=== PATIENT | female | born 1965 | race Caucasian/White ===

== ENCOUNTER 2017-08-23 02:06 | Emergency (ER) | payer OTHER ==
[~2017-08-23] VITALS: Ht 182.9 cm; Wt 81.7 kg
[~2017-08-23 02:06] MED LIST: BACTROBAN22 GM TOP; BUPROPION HCL100 MG PO; ESTROGEN-METHY1 EACH PO; HUMIRA40 MG/0.1 SUB-Q; HYDROXYZINE HCL50 MG PO; LEVOTHYROXINE25 MCG PO; LEVOTHYROXINE88 MCG PO; MEDROXYPROGESTE10 MG PO; OXAPROZIN600 MG PO; SYNTHROID125 MCG PO; TRAMADOL HCL50 MG PO; VENLAFAXINE H37.5 M1 PO
[2017-08-23] MEDS ORDERED: NATURE-THROID325 MG (02:20)
[2017-08-23] MEDS ORDERED: CYCLOBENZAPRINE10 MG PO (02:21)
== END 2017-08-23 03:37 | disposition home or self-care (01) ==
LOC: ED 02:06
DX: G43.909 Migraine, unspecified, not intractable, without status migrainosus (principal); E03.9 Hypothyroidism, unspecified; Z79.899 Other long term (current) drug therapy
CPT/HCPCS: 96361; 96372; 96374; 96375; 99283; J1200; J1885; J2765; J3030; J7030

== ENCOUNTER 2019-02-10 06:55 | Day surgery (SDC) | payer OTHER ==
--- NOTE | 2019-01-28 17:18 | NUR ---
PATIENT HERE TODAY FOR PREADMISSION APPOINTMENT. SHE IS ACCOMPANIED BY HER ARETHA. SHE IS SCHEDULED TO HAVE A RIGHT TOTAL HIP ARTHROPLASTY ON 02/10/19. THEY HAVE ONE STEP INTO THE HOME AND 2 STEPS INSIDE THE HOME INTO THE LIVING ROOM AREA. THERE IS A TUB/SHOWER COMBINATION WITH A HAND HELD SHOWER HEAD. SHE WILL OBTAIN A FRONT WHEELED WALKER AND SHOWER BENCH/CHAIR BEFORE SURGERY. SHE WAS INSTRUCTED TO BRING HER WALKER WITH HER ON ADMISSION SO PHYSICAL THERAPY COULD EVALUATE AND ADJUST IF NEEDED. THEY BOTH VERBALIZED UNDERSTANDING OF THIS. RESOURCES GIVEN REGARDING OBTAINING A WALKER. SHE HAS A PREOPERATIVE APPOINTMENT WITH PHYSICAL THERAPY ON 01/30/19 AT 0700. SHE WAS INSTRUCTED TO TALK WITH THEM REGARDING QUESTIONS ABOUT GETTING IN AND OUT OF BED, CAR AND STAIRS. SHE WOULD LIKE PHYSICAL THERAPY SET UP WITH [facility] AFTER SURGERY. THIS INFORMATION WILL BE SENT TO DR RUFFIN OFFICE AND CASE MANAGEMENT FOR FURTHER FOLLOW UP.
[~2019-02-10] VITALS: Ht 182.9 cm; Wt 86.2 kg
--- OUTSIDE RECORDS SUMMARY | ~2019-02-10 | XMS | Clinical Summary ---
Demographics + + + | Address | [address] | | | [place] [address] | + + + | Home Phone | | + + + | Preferred Language | Unknown | + + + | Marital Status | | + + + | Orthodoxy Affiliation | 1013 | + + + | Race | Unknown | + + + | Ethnic Group | Unknown | + + + Author + + + | Author | [facility] | | | and Jalilana | + + + | Organization | [facility] | | | and [place] | + + + | Address | Unknown | + + + | Phone | Unavailable | + + + Support + + +---------+ + | Name | Relationship | Address | Phone | + + +---------+ + | Keith Friedman | ECON | Unknown | | + + +---------+ + Care Team Providers + +------+ + | Care Auto Former Machine Operator Name | Role | Phone | + +------+ + | Roselyn Cotter | PCP | | | PA | | | + +------+ + Allergies No Known Allergies Medications + + + +---------+------+------+-------+ | Medication | Sig | Dispensed | Refills | Star | End | Statu | | | | | | t | Date | s | | | | | | Date | | | + + + +---------+------+------+-------+ | EQUIPTO-NAPROXEN | Place onto the | | 0 | 07/2 | | Activ | | EX | skin. | | | 4/20 | | e | | | | | | 19 | | | + + + +---------+------+------+-------+ | thyroid (ARMOUR) | Take 120 mg by mouth | | 0 | 07/2 | | Activ | | 120 MG tablet | every morning | | | 4/20 | | e | | | before breakfast. | | | 19 | | | + + + +---------+------+------+-------+ | thyroid | Take by mouth. | | 0 | 07/2 | | Activ | | (NATURE-THROID) | | | | 4/20 | | e | | 48.75 MG TABS | | | | 19 | | | + + + +---------+------+------+-------+ | traMADol (ULTRAM) | Take 50 mg by mouth | | 0 | 12/0 | | Activ | | 50 mg tablet | every 6 (six) hours | | | 8/20 | | e | | | as needed for Pain. | | | 15 | | | + + + +---------+------+------+-------+ | aspirin 325 mg | Take 650 mg by mouth | | 0 | 12/2 | | Activ | | tablet | as needed for Pain. | | | 8/20 | | e | | | | | | 15 | | | + + + +---------+------+------+-------+ | hydrocortisone | Take 5 mg by mouth 2 | | 0 | 11/0 | | Activ | | (CORTEF) 5 MG tablet | (two) times daily. | | | 9/20 | | e | | | | | | 18 | | | + + + +---------+------+------+-------+ | naltrexone (REVIA) | Take 50 mg by mouth | | 0 | 11/0 | | Activ | | 50 mg tablet | daily. | | | 9/20 | | e | | | | | | 18 | | | + + + +---------+------+------+-------+ | MANUAL SELECTION | Apply topically | | 0 | 07/2 | | Activ | | NEEDED - | daily. Apply every | | | 4/20 | | e | | estriol-estradiol in | other day | | | 19 | | | | hormone cream base | | | | | | | + + + +---------+------+------+-------+ | meloxicam (MOBIC) | TAKE 1 TABLET DAILY | 30 | 12 | 0 | | Activ | | 15 mg tablet | | tablet | | 06/01 | | e | | | | | | 19 | | | + + + +---------+------+------+-------+ Active Problems + + + | Problem | Noted Date | + + + | Sacroiliitis | 09/04/2018 | + + + | Psoriasis | 09/04/2018 | + + + | Right hip pain | 09/04/2018 | + + + | Osteoarthritis | 09/04/2018 | + + + | Mass of right hand | 06/19/2018 | + + + | Subluxation of carpometacarpal joint of right thumb | 06/19/2018 | + + + + + | Overview: Added automatically from request for surgery [id number] | + + + + + | Arthritis of carpometacarpal (CMC) joint of right thumb | 12/26/2017 | + + + | Subluxation of carpometacarpal joint of left thumb | 02/18/2017 | + + + | Arthritis of carpometacarpal (CMC) joint of left thumb | 02/18/2017 | + + + | Right hand pain | 02/18/2017 | + + + | Spondyloarthropathy | 11/03/2016 | + + + | High risk medication use | 11/03/2016 | + + + | Thrombocytopenia | 11/03/2016 | + + + | Spondylosis without myelopathy or radiculopathy, lumbosacral | 12/21/2015 | | region | | + + + | Inflammatory polyarthropathy or polyarthritis | 12/21/2015 | + + + | Chronic right-sided low back pain without sciatica | 12/21/2015 | + + + | Slow transit constipation | 10/28/2015 | + + + | Sacro-iliac pain | 01/19/2015 | + + + | Spondylolisthesis of lumbar region | 01/19/2015 | + + + Family History + +------+ + + | Relation | Name | Status | Comments | + +------+ + + | Brother | | Alive | | + +------+ + + | Father | | Alive | | + +------+ + + | Mother | | | | + +------+ + + | Sister | | Alive | | + +------+ + + Social History + +-------+ +--------+------+ | Tobacco Use | Types | Packs/Day | Years | Date | | | | | Used | | + +-------+ +--------+------+ | Former Smoker | | | | | + +-------+ +--------+------+ + + + | Sex Assigned at | Date Recorded | | | | + + + | Not on file | | + + + + + + + | Job Start Date | Occupation | Industry | + + + + | Not on file | Not on file | Not on file | + + + + + + + + | Travel History | Travel Start | Travel End | + + + + + + | No recent travel history available. | + + Last Filed Vital Signs + + + + + | Vital Sign | Reading | Time Taken | Comments | + + + + + | Blood Pressure | 98/62 | 09/04/2018 9:47 AM | | | | | PDT | | + + + + + | Pulse | 72 | 09/04/2018 9:47 AM | | | | | PDT | | + + + + + | Temperature | 36.7 C (98 F) | 09/04/2018 9:47 AM | | | | | PDT | | + + + + + | Respiratory Rate | 16 | 01/11/2016 5:31 PM | | | | | PST | | + + + + + | Oxygen Saturation | - | - | | + + + + + | Inhaled Oxygen | - | - | | | Concentration | | | | + + + + + | Weight | 84.1 kg (185 lb 6.4 | 09/04/2018 9:47 AM | | | | oz) | PDT | | + + + + + | Height | 182.9 cm (6') | 06/19/2018 2:34 PM | | | | | PDT | | + + + + + | Body Mass Index | 25.14 | 06/19/2018 2:34 PM | | | | | PDT | | + + + + + Plan of Treatment + + + + + | Health Maintenance | Due Date | Last Done | Comments | + + + + + | Hepatitis C | | | | | Screening | 4 | | | + + + + + | Vaccine: | | | | | Dtap/Tdap/Td (1 - | 5 | | | | Tdap) | | | | + + + + + | Cervical Cancer | | | | | Screening (Pap) | 4 | | | + + + + + | Colorectal Cancer | | | | | Screening | 4 | | | | (Colonoscopy) | | | | + + + + + | Vaccine: Zoster (1 | | | | | of 2) | 4 | | | + + + + + | Breast Cancer | | | | | Screening | 9 | | | + + + + + | Vaccine: Influenza | | | | | (#1) | 9 | | | + + + + + Results Not on filefrom Last 3 Months Insurance +-------+--------+ +--------+-------+---------+------+ | Payer | Benefi | Subscriber | Effect | Phone | Address | Type | | | t Plan | ID | rosetta | | | | | | / | | Dates | | | | | | Group | | | | | | +-------+--------+ +--------+-------+---------+------+ | BCBS | BCBS | [id number] | | | | PPO | | | [place] | | 013-Pr | | | | | | L FEP | | esent | | | | +-------+--------+ +--------+-------+---------+------+ + +--------+ +--------+ + + | Guarantor Name | Accoun | Relation to | Date | Phone | Billing Address | | | t Type | Patient | of | | | | | | | | | | + +--------+ +--------+ + + | Trista Friedman | Person | Self [birth year] | [address] | | | al/Fam | | 1966 | [phone] | [address] [place] | | | miles | | | 2 (Home) | [address] | | | | | | [phone] | | | | | | | 0 (Work) | | + +--------+ +--------+ + + Advance Directives + + + + + | Type | Date Recorded | Patient | Explanation | | | | Dairy Manufacturing Technologist | | + + + + + | Power of | | | | | Toddler Lead Teacher | | | | + + + + + | Advance | | | | | Directive | | | | + + + + +"
--- OUTSIDE RECORDS SUMMARY | ~2019-02-10 | XMS | Encounter Summary ---
Demographics + + + | Address | [address] [facility] | | | [place] [address] | + + + | Home Phone | | + + + | Preferred Language | Unknown | + + + | Marital Status | | + + + | Temple Affiliation | 1013 | + + + | Race | Unknown | + + + | Ethnic Group | Unknown | + + + Author + + + | Author | [facility] | | | and Jalilana | + + + | Organization | [facility] | | | and Jalilana | [...] Team Providers + +------+ + | Care Eyelet Riveter Name | Role | Phone | + +------+ + | Roselyn Cotter | PCP | | | PA | | | + +------+ + Encounter Details +--------+ + + + + | Date | Type | Department | Care Team | Description | +--------+ + + + + | 02/10/ | Orders Only | [facility] | Neema Queen | | | 2015 | | RHEUMATOLOGY [address] | [address] | | | | | [address] | [facility] | | | | | [place] | [place] [address] | | | | | [address] | [phone] | | | | | [phone] | | | +--------+ + + + + Social History + +-------+ +--------+------+ | Tobacco Use | Types | Packs/Day | Years | Date | | | | | Used | | + +-------+ +--------+------+ | Never Assessed | | | | | + +-------+ [...] recent travel history available. | + + documented as of this encounter Plan of Treatment Not on filedocumented as of this encounter Visit Diagnoses Not on filedocumented in this encounter"
--- OUTSIDE RECORDS SUMMARY | ~2019-02-10 | XMS | Encounter Summary ---
Demographics + + + | Address | [address] | | | [place] [address] | + + + | Home Phone | | + + + | Preferred Language | Unknown | + + + | Marital Status | | + + + | Religion Affiliation | 1013 | + + + | Race | Unknown | + + + | Ethnic Group | Unknown | + + + Author + + + | Author | [facility] | | | and Jalilana | + + + | Organization | [facility] | | | and Jalilana [...] Team Providers + +------+ + | Care Consumer Services Consultant Name | Role | Phone | + [...] + + | 10/15/ | Refill | [facility] | Neema Queen | Medication Refill | | 2018 | | RHEUMATOLOGY [address] | [address] | | | | | [address] | [address] | | | | | [place] | [place] [address] | | | | | [address] | [phone] | | | | | [phone] | | | +--------+--------+ + + + [...]
--- OUTSIDE RECORDS SUMMARY | ~2019-02-10 | XMS | Encounter Summary ---
Demographics + + + | Address | [address] | | | [place] [address] | + + + | Home Phone | | + + + | Preferred Language | Unknown | + + + | Marital Status | | + + + | Druze Affiliation | 1013 | + + + | Race | Unknown | + + + | Ethnic Group | Unknown | + + + Author + + + | Author | [facility] | | | and Jalilana | + + + | Organization | [facility] | | | and Jalilana | + [...] Team Providers + +------+ + | Care Board Worker Name | Role | Phone | + +------+ + | Roselyn Cotter | PCP | | | PA | | | + +------+ + Encounter Details +--------+ + + + + | Date | Type | Department | Care Team | Description | +--------+ + + + + | 09/04/ | Orders Only | [facility] | Conversion | Osteoarthritis | | 2019 | | CONVERSION DEP [address] | Transaction, | | | | | [address] | Provider Unknown | | | | | [place] | [phone] | | | | | [address] | | | | | | [phone] | | | +--------+ + + + [...] as of this encounter Plan of Treatment + +------+--------+ + + | Name | Type | Priori | Associated Diagnoses | Order Schedule | | | | ty | | | + +------+--------+ + + | CBC with | Lab | Routin | Osteoarthritis | 3 Occurrences | | Differential | | e | | starting 09/27/2018 | | | | | | until 09/05/2019 | + +------+--------+ + + | Comprehensive | Lab | Routin | Osteoarthritis | 3 Occurrences | | Metabolic Panel | | e | | starting 09/27/2018 | | | | | | until 09/05/2019 | + +------+--------+ + + | Sedimentation Rate | Lab | Routin | Osteoarthritis | 3 Occurrences | | | | e | | starting 09/27/2018 | | | | | | until 09/05/2019 | + +------+--------+ + + | C-Reactive Protein | Lab | Routin | Osteoarthritis | 3 Occurrences | | | | e | | starting 09/27/2018 | | | | | | until 09/05/2019 | + +------+--------+ + + documented as of this encounter Visit Diagnoses + + | Diagnosis | + + | Osteoarthritis Osteoarthrosis, unspecified whether generalized or localized, | | unspecified site | + + documented in this encounter"
--- OUTSIDE RECORDS SUMMARY | ~2019-02-10 | XMS | Encounter Summary ---
Demographics + + + | Address | [address] [address] | | | [place] [address] | + + + | Home Phone | | + + + | Preferred Language | Unknown | + + + | Marital Status | | + + + | Jainism Affiliation | 1013 | + + + | Race | Unknown | + + + | Ethnic Group | Unknown | + + + Author + + + | Author | [facility] | | | and Jalilana | + + + | Organization | [facility] | | | and Jal[place]ana [...] Team Providers + +------+ + | Care Documentation Designer Name | Role | Phone | + +------+ + PCP | Unavailable | + +------+ + Encounter Details +--------+ + + + + | Date | Type | Department | Care Team | Description | +--------+ + + + + | 10/05/ | Hospital | [facility] | Alhaji Nuno | | | 2012 | Encounter | [facility] EM[facility] | MD [address] | | | | | [place] [address] | [facility] | | | | | [place] | [place] [address] | | | | | [address] | [phone] | | | | | [phone] | | | +--------+ + + + [...] Performed At | + + + | [facility] | [place] | | Department [address] [facility] [address] | [facility] | | [ rep [address]] [ rep [facility] | | st zip] Signed | - IMAGING | | | | | Patient Name: TRISTA MENDOZA | | | Physician: EFRAIN : 1965 Age: 47 Sex: F Unit | | | #: [id number] Exam Date: 10/05/12 Location: | | | ER Report #: [id number] Page: | | | %(RAD)RES..mtdd.print.filter("pg") of %(RAD) | | | RES..mtdd.print.filter("tpg") | | | | | | Accession Number: [id number] | | | PORTABLE CHEST CLINICAL HISTORY: [...] Transcribed Date/Time: 10/05/2012 | | | 11:41 Vinyl Cutter: <<Signature | | | on File>> | | | | | | Angel Chambers MD10/06/12 0954 <Electronically signed by | | | Angel Chambers MD> Angel Chambers MD 10/05/12 | | | 1128 Vinyl Cutter: Raysa [id number]/24/13 1141 | | | Alhaji Nuno MD | | + + + + + + + + | Performing | Address | City/State/Zipcode | Phone Number | | Organization | | | | + + + + + | [facility] | [address] | [place] | [phone] | | [facility] | | [address] | | | - IMAGING | | [...] | | Count | | | [facility] | | | | | | MEDICAL [...] [address] | [place] | [phone] | | [facility] | | [address] | | | - LABORATORY | | | | + + + + + | [facility] | [address] | [place] | | | [facility] | | [address] | | | - LABORATORY | | [...] + | [facility] | [address] | [place], [place] | [phone] | | [facility] | | [address] | | | - LABORATORY | | | | + + + + + | [facility] | [address] | [place], [place] | | | [facility] | | [address] | | | - LABORATORY | | [...] + | [facility] | [address] | [place], [place] | [phone] | | [facility] | | [address] | | | - LABORATORY | | | | + + + + + | [facility] | [address] | [place] | | | [facility] | | [address] | | | - LABORATORY | | [...] The | | | | | | [employer] | | | | | [...] + + | Performing | Address | City/State/[facility] | Phone Number | | Organization | | | | + + + + + | [facility] | [address] | [place] | [phone] | | [facility] | | [address] | | | - LABORATORY | | | | + + + + + | [facility] | [address] | [place] | | | [facility] | | [address] | | | - LABORATORY | | | | + + + + + documented in this encounter Visit Diagnoses Not on filedocumented in this encounter
--- OUTSIDE RECORDS SUMMARY | ~2019-02-10 | XMS | Encounter Summary ---
Demographics + + + | Address | [address] [facility] [facility] [address] | | | [place] [address] | + + + | Home Phone | | + + + | Preferred Language | Unknown | + + + | Marital Status | | + + + | Christianity Affiliation | 1013 | + + + | Race | Unknown | + + + | Ethnic Group | Unknown | + + + Author + + + | Author | [facility] | | | and Jalilana | + + + | Organization | [facility] | | | and [...] Team Providers + +------+ + | Care Gut Dropper Name | Role | Phone | + [...] | | | | [place] | [address] | | | | | [address] | | | | | | [phone] | | | +--------+ + + + [...]
--- OUTSIDE RECORDS SUMMARY | ~2019-02-10 | XMS | Encounter Summary ---
Demographics + + + | Address | [address] [facility] | | | [place] [address] | + + + | Home Phone | | + + + | Preferred Language | Unknown | + + + | Marital Status | | + + + | Adventism Affiliation | 1013 | + + + | Race | Unknown | + + + | Ethnic Group | Unknown | + + + Author + + + | Author | [facility] | | | and Jalilana | + + + | Organization | [facility] | | | and [...] Team Providers + +------+ + | Care Conference Services Director Name | Role | Phone | + +------+ + | Roselyn Cotter | PCP | | | PA | | | + +------+ + Encounter Details +--------+ + + + + | Date | Type | Department | Care Team | Description | +--------+ + + + + | 09/13/ | Orders Only | [facility] | Iker Rowe | | | 2017 | | [address] | [address] | | | | | [address] | [address] | | | | | [place] | [place] [address] | | | | | [address] | [phone] | | | | | [phone] | | | +--------+ + + + [...] +--------+ + + + | XR FOOT LEFT 3 + VW | Routin | 09/13/2016 | | Results for this | | | e | 2:52 PM | | procedure are in the | | | | PDT | | results section. | + +--------+ + + + documented in this encounter Results XR Foot Left 3 + Vw (09/13/2016 2:52 PM PDT) + + | Specimen | + + | | + + + + + | Narrative | Performed At | + + + | | | | | | | Three views of the left foot demonstrate a calcaneal inclination | | | angle within normal limits. Bone density within normal limits. Dorsal | | | spurring at the midfoot on the lateral view noted with mild spurring | | | to the first metatarsal head. Intermetatarsal angle measures 11.4 | | | degrees with mild abduction of the great toe. IMPRESSION Mild | | | bunion deformity, left foot, with dorsal spurring to the first | | | metatarsocuneiform articulation. Read by IKER ROWE DPM | | | 09/18/2016 06:45 A | | + + + + + | Procedure Note | + + | Gurvinder Chan Conversion - 10/03/2018 7:20 PM PDT | | | | | | Three views of the left foot demonstrate a calcaneal inclination angle | | within normal limits. Bone density within normal limits. Dorsal spurring at | | the midfoot on the lateral view noted with mild spurring to the first | | metatarsal head. Intermetatarsal angle measures 11.4 degrees with mild | | abduction of the great toe. | | | | IMPRESSION | | Mild bunion deformity, left foot, with dorsal spurring to the first | | metatarsocuneiform articulation. | | | | Read by IKER ROWE DPM 09/18/2016 06:45 A | | | | | + + documented in this encounter Visit Diagnoses Not on filedocumented in this encounter"
--- OUTSIDE RECORDS SUMMARY | ~2019-02-10 | XMS | Encounter Summary ---
Demographics + + + | Address | [address] [facility] | | | [place] [address] | + + + | Home Phone | | + + + | Preferred Language | Unknown | + + + | Marital Status | | + + + | Confucianism Affiliation | 1013 | + + + | Race | Unknown | + + + | Ethnic Group | Unknown | + + + Author + + + | Author | [facility] | | | and Jalilana | + + + | Organization | [facility] | | | and Jalilana [...] Team Providers + +------+ + | Care Websphere Architect Name | Role | Phone | + +------+ + PCP | Unavailable | + +------+ + Encounter Details +--------+ + + + + | Date | Type | Department | Care Team | Description | +--------+ + + + + | 08/24/ | Hospital | [facility] | Eugenio Rowe, | | | 2000 | Encounter | MED CTR GENERIC OP | MD [address] | | | | | CONV DEPT [address] | [place] | | | | | [place], | [address] | | | | | [place] [address] | | | | | | [phone] | | | +--------+ + + + [...]
--- OUTSIDE RECORDS SUMMARY | ~2019-02-10 | XMS | Encounter Summary ---
Demographics + + + | Address | [address] [facility] | | | [place] [address] | + + + | Home Phone | | + + + | Preferred Language | Unknown | + + + | Marital Status | | + + + | Yazdanism Affiliation | 1013 | + + + | Race | Unknown | + + + | Ethnic Group | Unknown | + + + Author + + + | Author | [facility] | | | and Jalilana | + + + | Organization | [facility] | | | and Jalilana [...] Team Providers + +------+ + | Care Packing Shed Supervisor Name | Role | Phone | + [...] Provider Unknown | | | | | [place], [place] | [phone] | | | | | [address] | (Fax) | | | | | [...]
--- OUTSIDE RECORDS SUMMARY | ~2019-02-10 | XMS | Clinical Summary ---
Demographics + + + | Address | [address] [facility] | | | [place] [address] | + + + | Home Phone | | + + + | Preferred Language | Unknown | + + + | Marital Status | | + + + | Alevism Affiliation | Unknown | + + + | Race | Unknown | + + + | Ethnic Group | Unknown | + + + Author + + + | Author | [facility] (Historical as of | | | 09-28-18) | + + + | Organization | [facility] (Historical as of | | | 09-28-18) [...] Team Providers + +------+ + | Care Nuclear Medicine Tech Name | Role | Phone | + [...] | | | | Activ | | [id number] | skin. | | | | | [...] Overview: Added automatically from request for surgery [id number] | + + + + + | [...] I | | encouraged her to try [id number] laxitives. | + + + + + | Sacro-iliac pain | 01/19/2015 | + + + + + | Last Assessment & Plan: She was diagnosed with psoriatic | | arthritis and ankylosing spondylitis this past year. She reports | | no weakness, numbness nor bowel/bladder dysfunction. She did try | | physical therapy 2 years ago in [facility] [place] for a total of [...] +------+-------+---------+ | [facility] | [facility] | [id number] | | | | | | | [...] | Self | [birth year] | Home: | [address] | | | al/Fam | | 1966 | [phone] | [place] | | | miles | | | [phone] | [address] | + +--------+ +--------+ + +"
--- OUTSIDE RECORDS SUMMARY | ~2019-02-10 | XMS | Encounter Summary ---
Demographics + + + | Address | [address] [facility] | | | [place] [address] | + + + | Home Phone | | + + + | Preferred Language | Unknown | + + + | Marital Status | | + + + | Methodist Affiliation | 1013 | + + + | Race | Unknown | + + + | Ethnic Group | Unknown | + + + Author + + + | Author | [facility] | | | and Jalilana | + + + | Organization | [facility] | | | and Jalilana [...] Providers + +------+ + | Care Senior Financial Name | Role | Phone | + [...] | [address] | [address] | | | | | [place] | [facility] | | | | | [address] | [place] [address] | | | | | [phone] | [phone] | | | | | | | [...]
--- OUTSIDE RECORDS SUMMARY | ~2019-02-10 | XMS | Encounter Summary ---
Demographics + + + | Address | [address] [facility] | | | [place] [address] | + + + | Home Phone | | + + + | Preferred Language | Unknown | + + + | Marital Status | | + + + | Mandaeism Affiliation | 1013 | + + + | Race | Unknown | + + + | Ethnic Group | Unknown | + + + Author + + + | Author | [facility] | | | and Jalilana | + + + | Organization | [facility] | | | and Jalilana [...] Providers + +------+ + | Care Rn Military Name | Role | Phone | + [...] | | | | [place] | [phone] | | | | | [address] | | | | | | [phone] | | | +--------+ + + + [...]
--- OUTSIDE RECORDS SUMMARY | ~2019-02-10 | XMS | Encounter Summary ---
Demographics + + + | Address | [address] [facility] | | | [place] [address] | + + + | Home Phone | | + + + | Preferred Language | Unknown | + + + | Marital Status | | + + + | Alevism Affiliation | 1013 | + + + | Race | Unknown | + + + | Ethnic Group | Unknown | + + + Author + + + | Author | [facility] | | | and Jalilana | + + + | Organization | [facility] | | | and Jalilana | [...] Team Providers + +------+ + | Care Night Clerk Auditor Name | Role | Phone | + +------+ + | Roselyn Cotter | PCP | | | PA | | | + +------+ + Encounter Details +--------+ + + + + | Date | Type | Department | Care Team | Description | +--------+ + + + + | 11/22/ | Orders Only | [facility] | Adriano Chavez, | | | 2015 | | RHEUMATOLOGY [address] | [address] | | | | | [address] | [address] [place] | | | | | [place] | [address] | | | | | [address] | | | | | | [phone] | | | +--------+ + + + [...] | EXTERNAL LAB: CBC | Routin | 11/23/2015 | | Results for this | | | e | 2:42 PM | | procedure are in the | | | | PDT | | results section. | + +--------+ + + + | SEDIMENTATION RATE, | Routin | 11/23/2015 | | Results for this | | AUTOMATED | e | 2:42 PM | | procedure are in the | | | | PDT | | results section. | + +--------+ + + + | COMPREHENSIVE | Routin | 11/23/2015 | | Results for this | | METABOLIC PANEL | e | 2:42 PM | | procedure are in the | | | | PDT | | results section. | + +--------+ + + + documented in this encounter Results Sedimentation rate, automated (11/23/2015 2:42 PM PDT) + +-------+ + + + | Component | Value | Ref Range | Performed | Pathologist | | | | | At | Signature | + +-------+ + + + | Sed Rate | 6 | 0 - 30 mm/h | EXTERNAL | | | | | [...] + +---------+ + + External Lab: CBC (11/23/2015 2:42 PM PDT) + + + + + + | Component | Value | Ref Range | Performed | Pathologist | | | | | At | Signature | + + + + + + | WBC | 4.6 | 3.8 - 11.0 | EXTERNAL | | | | | 10*3/uL | LAB | | + + + + + + | RED CELL | 4.90 | 3.70 - 5.10 | EXTERNAL | | | COUNT | | 10*6/uL | LAB | | + + + + + + | Hgb | 15.0 | 11.3 - 15.5 | EXTERNAL | | | | | g/dL | LAB | | + + + + + + | Hematocrit, | 43.9 | 34.0 - 46.0 % | EXTERNAL | | | POC | | | LAB | | + + + + + + | MCV | 90.0 | 80.0 - 100.0 fL | EXTERNAL | | | | | | LAB | | + + + + + + | MCH | 30.7 | 27.0 - 34.0 pg | EXTERNAL | | | | | | LAB | | + + + + + + | MCHC | 34.2 | 32.0 - 35.5 | EXTERNAL | | | | | g/dL | LAB | | + + + + + + | Platelet | 150 | 150 - 400 | EXTERNAL | | | Count | | 10*3/uL | LAB | | | Plasma | | | | | + + + + + + | MPV | 8.4 | fL | EXTERNAL | | | | | | LAB | | + + + + + + | Differentia | AUTOMATED | | EXTERNAL | | | l Type | | | LAB | | + + + + + + | % Segmented | 44.1 | | EXTERNAL | | | | | | LAB | | | Neutrophils | | | | | + + + + + + | % | 46.8 | % | EXTERNAL | | | Lymphocytes | | | LAB | | + + + + + + | % Monocytes | 7.2 | % | EXTERNAL | | | | | | LAB | | + + + + + + | % | 1.4 | % | EXTERNAL | | | Eosinophils | | | LAB | | + + + + + + | % Basophils | 0.5 | % | EXTERNAL | | | | | | LAB | | + + + + + + | Absolute | 2.0 | 1.9 - 7.4 | EXTERNAL | | | Segmented | | 10*3/uL | LAB | | | Neutrophils | | | | | + + + + + + | Absolute | 2.2 | 1.0 - 3.9 | EXTERNAL | | | Lymphocytes | | 10*3/uL | LAB | | + + + + + + | Absolute | 0.3 | 0.0 - 0.8 | EXTERNAL | | | Monocytes | | 10*3/uL | LAB | | + + + + + + | Absolute | 0.1 | 0.0 - 0.5 | EXTERNAL | | | Eosinophils | | 10*3/uL | LAB | | + + + + + + | Absolute | 0.0 | 0.0 - 0.1 | EXTERNAL | | | Basophils | [...] + +---------+ + + Comprehensive Metabolic Panel (11/23/2015 2:42 PM PDT) + + + + + + | Component | Value | Ref Range | Performed | Pathologist | | | | | At | Signature | + + + + + + | Na | 139 | 135 - 145 | EXTERNAL | | | | | mmol/L | LAB | | + + + + + + | K | 4.6 | 3.5 - 4.9 | EXTERNAL | | | | | mmol/L | LAB | | + + + + + + | Cl | 104 | 99 - 109 mmol/L | EXTERNAL | | | | | | LAB | | + + + + + + | CO2 | 28 | 23 - 32 mmol/L | EXTERNAL | | | | | | LAB | | + + + + + + | Anion Gap | 12 | 5 - 20 mmol/L | EXTERNAL | | | | | | LAB | | + + + + + + | Glucose, | 81 | 65 - 99 mg/dL | EXTERNAL | | | Fasting | | | LAB | | + + + + + + | BUN | 19 | 8 - 25 mg/dL | EXTERNAL | | | | | | LAB | | + + + + + + | Creatinine | 0.9 | 0.50 - 1.00 | EXTERNAL | | | | | mg/dL | LAB | | + + + + + + | BUN/Creatin | 21 | | EXTERNAL | | | ine Ratio | | | LAB | | + + + + + + | Calcium | 9.3 | 8.5 - 10.5 | EXTERNAL | | | | | mg/dL | LAB | | + + + + + + | Protein, | 7.6 | 6.3 - 8.2 g/dL | EXTERNAL | | | Total | | | LAB | | + + + + + + | Albumin | 4.4 | 3.6 - 5.0 g/dL | EXTERNAL | | | | | | LAB | | + + + + + + | Globulin | 3.2 | 1.3 - 4.9 g/dL | EXTERNAL | | | | | | LAB | | + + + + + + | A/G Ratio | 1.4 | 1.0 - 2.4 | EXTERNAL | | | | | | LAB | | + + + + + + | Bilirubin | 0.4 | 0.1 - 1.5 mg/dL | EXTERNAL | | | Total | | | LAB | | + + + + + + | ALP, | 89 | 35 - 115 U/L | EXTERNAL | | | External | | | LAB | | + + + + + + | AST | 13 | 10 - 45 U/L | EXTERNAL | | | | | | LAB | | + + + + + + | ALT | 24 | 10 - 65 U/L | EXTERNAL | | | | | | LAB | | + + + + + + | Estimated | >60Comment: GFR <60: | mL/min/{1.73_m2 | EXTERNAL | | | GFR | CHRONIC KIDNEY DISEASE, | } | LAB | | | | IF FOUND OVER A 3 MONTH | | | | | | PERIOD. GFR <15: KIDNEY | | | | | | FAILURE. FOR | | | | | | AMERICANS, MULTIPLY THE | | | | | | CALCULATED GFR BY 1.210. | | | | + + + [...]
--- OUTSIDE RECORDS SUMMARY | ~2019-02-10 | XMS | Encounter Summary ---
Demographics + + + | Address | [address] [facility] | | | [place] [address] | + + + | Home Phone | | + + + | Preferred Language | Unknown | + + + | Marital Status | | + + + | Restoration Affiliation | 1013 | + + + | Race | Unknown | + + + | Ethnic Group | Unknown | + + + Author + + + | Author | [facility] | | | and Jalilana | + + + | Organization | [facility] | | [...] Team Providers + +------+ + | Care Animation Producer Name | Role | Phone | + +------+ + | Roselyn Cotter | PCP | | | PA | | | + +------+ + Encounter Details +--------+ + + + + | Date | Type | Department | Care Team | Description | +--------+ + + + + | 04/12/ | Orders Only | [facility] | Conversion | | | 2016 | | RHEUMATOLOGY [address] | Transaction, | | | | | [address] | Provider Unknown | | | | | [place] | [phone] | | | | | [address] | | | | | | [phone] | | | +--------+ + + + [...]
--- OUTSIDE RECORDS SUMMARY | ~2019-02-10 | XMS | Encounter Summary ---
Demographics + + + | Address | [address] [facility] | | | [place] [address] | + + + | Home Phone | | + + + | Preferred Language | Unknown | + + + | Marital Status | | + + + | Restoration Affiliation | 1013 | + + + | Race | Unknown | + + + | Ethnic Group | Unknown | + + + Author + + + | Author | [facility] | | | and Jalilana | + + + | Organization | [facility] | | | and Jalilana [...] Team Providers + +------+ + | Care General Machine Operator Name | Role | Phone | + +------+ + | Roselyn Cotter | PCP | | | PA | | | + +------+ + Encounter Details +--------+ + + + + | Date | Type | Department | Care Team | Description | +--------+ + + + + | 09/13/ | Orders Only | [facility] | Iker Rowe | | | 2017 | | [address] | [address] | | | | | [address] | [address] | | | | | [place] | [place] [address] | | | | | [address] | [phone] | | | | | [phone] | | | +--------+ + + + [...]
--- OUTSIDE RECORDS SUMMARY | ~2019-02-10 | XMS | Encounter Summary ---
Demographics + + + | Address | [address] [facility] | | | [place] [address] | + + + | Home Phone | | + + + | Preferred Language | Unknown | + + + | Marital Status | | + + + | Jew Affiliation | 1013 | + + + | Race | Unknown | + + + | Ethnic Group | Unknown | + + + Author + + + | Author | [facility] | | | and Jalilana | + + + | Organization | [facility] | | | and [...] Team Providers + +------+ + | Care Roofer Assistant Name | Role | Phone | [...] + + | 10/03/ | Refill | [facility] | Neema Queen | Medication Refill | | 2018 | | RHEUMATOLOGY [address] | [address] | | | | | [address] | [address] | | | | | [place] | [place] [address] | | | | | [address] | [phone] | | | | | [phone] | | | +--------+--------+ + + + [...]
--- OUTSIDE RECORDS SUMMARY | ~2019-02-10 | XMS | Encounter Summary ---
Demographics + + + | Address | [address] [facility] | | | [place] [address] | + + + | Home Phone | | + + + | Preferred Language | Unknown | + + + | Marital Status | | + + + | Catholic Affiliation | 1013 | + + + | Race | Unknown | + + + | Ethnic Group | Unknown | + + + Author + + + | Author | [facility] | | | and Jalilana | + + + | Organization | [facility] | | | and Jalilana [...] Team Providers + +------+ + | Care Host/Hostess Head Name | Role | Phone | + [...] | | | | [place] | [phone] | | | | | [address] | | | | | | [phone] | | | +--------+ + + + [...]
--- OUTSIDE RECORDS SUMMARY | ~2019-02-10 | XMS | Encounter Summary ---
Demographics + + + | Address | [address] [facility] | | | [place] [address] | + + + | Home Phone | | + + + | Preferred Language | Unknown | + + + | Marital Status | | + + + | Confucianism Affiliation | 1013 | + + + | Race | Unknown | + + + | Ethnic Group | Unknown | + + + Author + + + | Author | [facility] | | | and Jalilana | + + + | Organization | [facility] | | | and Jalilana [...] Team Providers + +------+ + | Care Investigative Shopper Name | Role | Phone | + [...] | | | | [place] | [phone] | | | | | [address] | | | | | | [phone] | | | +--------+ + + + [...]
[~2019-02-10 06:55] MED LIST changes: +CYCLOBENZAPRINE10 MG PO; +ESTRA PV; -ESTROGEN-METHY1 EACH PO; +NATURE-THROID325 MG; +PROGEST PV; +[UNRECOGNIZED DRUG - OTHER] PV
[2019-02-10] MEDS ORDERED: ACETAMINOPHEN-1 EACH PO (07:10)
[2019-02-10] MEDS ORDERED: MAGNESIUM CITR125 MG PO (07:12)
[2019-02-10] MEDS ORDERED: MELOXICAM15 MG PO (07:22)
--- NOTE | 2019-02-10 13:31 | NUR ---
02/10/19 Malick1 Clotilde Zepeda 1312- PT ARRIVES TO PACU ALERT AND TALKING. RESP EVEN AND UNLABORED. OXYGEN SAT HIGH 90'S TO 100% ON RA. PT REPORTS NO PAIN OR NAUSEA. PT'S DEONTE DRESSING FLASHING GREEN. 1328- CRYOCUFF PLACED TO PT'S RIGHT HIP WITH A PILLOW CASE IN BETWEEN HER SKIN AND CRYOCUFF.
--- NOTE | 2019-02-10 14:00 | NUR ---
PT ARRIVED FROM PACU. DRESSING SHOWS SMALL PIN POINT AMOUNT OF RED DRAINAGE. GREEN LIGHT FLASHING ON DEONTE CANISTER. CMS INTACT. PT DEMONSTRATES USE OF I.S. REACHING 2500. O2 AT 100%ON ROOM AIR. CRYO CUFF, FOOT PUMPS, ARGENIS HOSE, HEEL PROTECTORS ALL IN PLACE. WARM BLANKETS PROVIDED. MEDICATIONS GIVEN. PT REPORTS 8/10 PAIN. PT DENIES NAUSEA AND IS TOLERATING SIPS OF WATER AND BROTH. FAMILY AT BEDSIDE. CALL LIGHT WITHIN REACH.
[2019-02-10] MEDS ORDERED: NP THYROID 120120 MG PO (14:27)
--- NOTE | 2019-02-10 14:50 | NUR ---
VITALS AND ASSESSMENT DUE. PT VISITING WITH FAMILY. PT CONTINUES TO REPORT 8/[address] DRESSING C/D/I WITH SMALL PIN POINT DRAINAGE UNCHANGED. I.S. USE DEMONSTRATED REACHING 2500. GREEN LIGHT FLASHING ON DEONTE DRESSING. CYRO CUFF, SCD'S, ARGENIS HOSE AND HEEL PROTECTORS IN PLACE. TAX COMPLETE. PIV SALINE LOCKED. PHYSICAL THERAPY TO BESIDE TO TALK WITH PT. PLANNING PHYSICAL THERAPY FOR 1600. FAMILY AT BEDSIDE. CALL LIGHT WITHIN REACH.
--- NOTE | 2019-02-10 15:53 | NUR ---
VITALS AND ASSESSMENT DUE. THIS RN TO BEDSIDE. PT VISITING WITH FAMILY. PALE SKIN NOTED. PULSE OX 100% ON ROOM AIR. PT REPORTS 7/10 PAIN, FALLS ASLEEP EASILY. PT REPORTS SHE CAN "WAIT FOR MORE PAIN MEDICATION." CMS INTACT. NO NEW DRAINGE NOTED ON DRESSING. CRYO CUFF, FOOT PUMPS, ARGENIS HOSE AND HEEL PROTECTORS IN PLACE. PT REACHES 2500ML ON I.S. NO ADDITONAL REQUESTS OR COMPLAINTS AT THIS TIME. PHYSICAL THERAPIST WORKING WITH PT. CALL LIGHT WITHIN REACH.
[2019-02-10] MEDS ORDERED: HYDROCORTISONE5 MG PO (16:33)
[2019-02-10] MEDS ORDERED: LIOTHYRONINE SO5 MCG PO (16:35)
[2019-02-10] MEDS ORDERED: VITAMIN D325 MC2 PO (16:40)
--- NOTE | 2019-02-10 16:50 | NUR ---
ASSESSMENT AND VITALS DUE. PT REPORTS LIGHT HEADEDNESS ESPICIALLY WITH ACTIVITY. PT ASSISTED UP TO COMODE WITH 2PA, VOIDS WITHOUT ISSUE. PT BACK TO BED. HOB LOWERED. O2 AT 100% ON ROOM AIR. DRESSING SHOWS NO NEW DRAINAGE. CRYO CUFF, FOOT PUMPS, ARGENIS HOSE, AND HEEL PROTECTORS IN PLACE. GREEN LIGHT FLASHING ON DEONTE DRESSING. NO ADDITIONAL REQUESTS OR COMPLAINTS AT THIS TIME. FAMILY AT BEDSIDE. CALL LIGHT WITHIN REACH.
--- NOTE | 2019-02-10 17:45 | NUR ---
Met with Trista. She is awake, but not feeling well. C0 of nausea and alcohol wipe given, c/o dizzines, and is very pale. States she lost a lot of blood during her surgery. Assisted to put head of bed down as she is sitting upright. Notified her RN, Naima. Pt states she lives in [place] with her spouse and he will assist her with home needs. 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 Has all her DME needed: cane, walker, shower chair, and commode. Plans on OP Therapy at the [facility]. Pt does states she feels better shortly after lowering the hob. States labs were draw to check her blood count.
--- NOTE | 2019-02-10 18:03 | NUR ---
PATIENT IN BED RESTING. PATIENT A LITTLE LIGHT HEADED, RN NOTIFIED. CRYO FILLED. CALL LIGHT IN REACH. NO FURTHER NEEDS AT THIS TIME.
--- NOTE | 2019-02-10 18:37 | NUR ---
THIS RN TO ROOM TO CHECK ON PT. IV ABX GIVEN. PAIN MEDICATION GIVEN FOR 6/10 PAIN. PT REPORTS NAUSEA. 300ML CLEAR RED EMESIS NOTED. SEE MAR FOR MEDICATION GIVEN. PT CONTINUES TO REPORT FEELING "DIZZY" O2 AT 99% ON ROOM AIR. PT REPORTS FEELING "MUCH BETTER" AFTER EMESIS AND MEDICATION. PT NOW REPORTS 4/10 PAIN AND IS WORKING ON PHONE. NO ADDITIONAL REQUESTS OR COMPLAINTS. CALL LIGHT WITHIN REACH.
--- NOTE | 2019-02-10 18:46 | NUR ---
PT POST OP DAY ZERO AFTER RIGHT HIP ARTHROPLASTY. DRESING SHOWS MINIMAL PINPOINT RED DRAINAGE, OTHERWISE C/D/I. GREEN LIGHT FLASHING ON DEONTE CANISTER. CMS INTACT. CRYO CUFF, FOOT PUMPS, ARGENIS HOSE, AND HEEL PROTECTORS IN PLACE. 1 EPISODE OF EMESIS. PT ON CLEAR LIQUID DIET AT THIS TIME. 4-7/10 PAIN. PRN PAIN MEDICATION GIVEN. COPX IN PLACE WITH O2 SATURATIONS ABOVE 92% ON ROOM AIR. PT UP TO BSC WITH PHYSICAL THERAPY. VOIDING QUANTITY SUFFICIENT. PT USES CALL LIGHT APPPROPRIATLY.
--- NOTE | 2019-02-10 19:05 | NUR ---
BEDSIDE REPORT RECEIVED FROM CLARENCE HONG. pt RESTING IN BED AWAKE, SPO2 94% ON RA. RATES PAIN 3/10 IN RIGHT HIP. CRYO CUFF, VENOUS FOOT PUMPS, ARGENIS HOSE, AND HEEL PROTECTORS ON. NO REQUESTS AT THIS TIME. CALL LIGHT IN REACH.
--- NOTE | 2019-02-10 21:32 | NUR ---
pt ASSESSMENT COMPLETE. pt DENIES PAIN AT REST, STATES "IT'S REALLY GOOD" WHEN WALKING, "5/10". 1PA TO RESTROOM WITH FWW FOR VOID AND BACK TO BED. CSM INTACT BLE. SMALL SPOT DRAINAGE ON DEONTE DRESSING. FLASHING GREEN. CRYO CUFF REFILLED AND IN PLACE. pt DENIES ADDITIONAL PAIN MEDICATIONS AT THIS TIME. CALL LIGHT IN REACH.
--- NOTE | 2019-02-10 23:50 | NUR ---
CHECKED ON pt. RESTING IN BED, SNORING. SPO2 93% ON RA. HR 70. LIGHTS OFF IN ROOM.
--- NOTE | 2019-02-11 02:02 | NUR ---
CALL LIGHT ANSWERED. SBA WITH FWW TO RESTROOM FOR VOID. BACK IN BED. CRYO CUFF REFILLED WITH ICE IN PLACE. DRAINAGE UNCHANGED ON DEONTE. pt RATES PAIN 5/10 WITH AMBULATION. PRN PAIN MEDICATION AND SCHEDULED IV ANTIBIOTIC ADMINISTERED. ASSESSMENT COMPLETE. CALL LIGHT IN REACH. VFP'S ON.
--- NOTE | 2019-02-11 04:14 | NUR ---
pt APPEARS TO BE SLEEPING. EYES CLOSED. SPO2 95% ON RA, HR 65. CALL LIGHT IN REACH.
--- NOTE | 2019-02-11 04:57 | NUR ---
pt BACK IN BED AFTER USING RESTROOM W STANDBY CLARENCE CHAVEZ ASSIST. DENIES ANY PAIN AT THIS TIME. CALL LIGHT IN REACH. NO REQUESTS AT THIS TIME.
--- NOTE | 2019-02-11 05:42 | NUR ---
pt RESTED WELL THIS SHIFT. PAIN WELL CONTROLLED WITH SCHEDULED AND PRN PO MEDICATIONS. NO NAUSEA. TOLERATING CLEAR LIQUIDS WELL. NO NEW DRAINAGE ON DEONTE DRESSING THIS SHIFT, SMALL SPOT SANGUINOUS FLUID, FLASHING GREEN. SBA WITH FWW TO RESTROOM, QS VOIDS. CSM INTACT BLE. CRYO CUFF, FOOT PUMPS, ARGENIS HOSE, HEEL PROTECTORS IN PLACE. SPO2 WNL ON RA.
--- NOTE | 2019-02-11 06:37 | NUR ---
pt SLEEPING. AWAKENS TO VOICE. SCHEDULED MEDICATIONS ADMINISTERED. pt STATES "IT FEELS LIKE JUST A SCRATCH" RATES PAIN 3/10 IN RIGHT HIP. SBA WITH FWW TO RESTROOM FOR VOID AND BACK TO BED. CRYO CUFF REFILLED AND IN PLACE. FOOT PUMPS, HEEL PROTECTORS AND ARGENIS HOSE ON. CALL LIGHT IN REACH. BREAKFAST MENU PROVIDED.
--- NOTE | 2019-02-11 07:15 | NUR ---
REPORT RECEIVED FROM CLARENCE FLANAGAN. PT RESTING IN BED, REPORTS 0/10 PAIN AND DENIES NAUSEA. CRYO CUFF, FOOT PUMPS, ARGENIS HOSE, AND HEEL PROTECTORS IN PLACE. NO ADDITIONAL REQUESTS OR COMPLAINTS AT THIS TIME. CALL LIGHT WITHIN REACH.
--- NOTE | 2019-02-11 07:44 | NUR ---
MORNING ASSESSMETN AND MEDCATION DUE. 1PA UP TO RESTROOM. PT VOIDS WITHOUT ISSUE. 1PA UP TO CHAIR. ASSESSMENT DONE. DRESSING SHOWS SMALL DIME SIZE RED SHADOWING. OTHERWISE C/D/I. GREEN LIGHT FLASHING ON DEONTE CANISTER. O2 AT 97% ON ROOM AIR. HR = 69. CYO CUFF, ARGENIS HOSE, FOOT PUMPS, AND HEEL PROTECTORS IN PLACE. PT DEMONSTRATES USE OF I.S. REACHING 2500. MEDICATION GIVNE. CMS INTACT.PT RPEORTS 4/10 PAIN WITH ACTIVITY, SEE MAR FOR MEDICATINO GIVEN. PT DENIES NAUSEA. NO ADDITIONAL REQUESTS OR COMPALINTS AT THIS TIME. CALL LIGHT WITHIN REACH.
--- NOTE | 2019-02-11 08:02 | OR ---
[facility] [address] [place], [place] [address] Signed DATE OF OPERATION: 02/10/2019 SURGEON: Lane Thomas MD PREOPERATIVE DIAGNOSIS: Degenerative joint disease, right hip. POSTOPERATIVE DIAGNOSIS: Degenerative joint disease, right hip. PROCEDURE PERFORMED: Right total hip arthroplasty, anterior approach. TIP PRINTER: Key Stern PA-C ANESTHESIA: Spinal. BLOOD LOSS: 400. IMPLANTS: 54-cup and a size #4 stem with a -5 ceramic head. BRIEF HISTORY: Trista is a 53-year-old female, who had severe arthritis in her hip. The arthritis was treated nonoperatively with minimal success. Risks and benefits of operative treatment discussed with her and she elected to proceed. DESCRIPTION OF PROCEDURE: Once consent was obtained, she was taken to the operating room. After adequate anesthesia, she was placed on operating room table. All downside pressure points well padded. The right hip was prepped and draped in a standard sterile fashion. The hip was approached anteriorly through standard 6-inch incision centered 2 cm distal and 2 cm lateral to the ASIS. This was carried through skin and subcutaneous tissue. The fascia was divided longitudinally over the top of the TFL and blunt dissection was taken over the TFL into the interval. Once this was accomplished, the reflected head of the rectus was elevated off the capsule and the soft tissue was cleared. Capsulectomy was then performed. Anterior capsule was removed and the retractors moved inside to the femoral Electronically Signed By: LANE THOMAS MD 02/11/19 0802 PATIENT NAME: TRISTA MACHUCA OPERATIVE REPORT DATE OF : 61 REPORT #: [id number] PHYSICIAN: LANE THOMAS MD PCP: CONY SANTOYO PAC REPORT IS CONFIDENTIAL AND NOT TO BE RELEASED WITHOUT AUTHORIZATION [facility] [address], [place] [address] Signed neck. Once this was accomplished, the capsule was released superiorly. Osteophytes on the acetabulum were removed. The capsule was released inferiorly around the level to the posterior inferior corner. The femoral neck cut was then checked using the image intensifier and made using a double cut technique. The napkin ring was removed followed by the femoral head. The periacetabular soft tissue was removed and the acetabulum was reamed under image intensifier guidance until 54 was well-seated. The 54 cup was then impacted in 20 degrees of anteversion and 40 degrees of abduction. It was quite well fitting. A single screw was placed in the posterior superior quadrant. The liner was then impacted. The attention was then turned to the proximal femur. The proximal femur was released by releasing the superior capsule to the tip of the trochanter and all the way posteriorly. The proximal femur was opened using cookie cutter followed by the small awl. It was then sequentially broached up to a 4. The 4 was found to be quite well fitting. Standard offset neck and -5 head were positioned and the hip was reduced quite easily. Radiograph showed good position and leg lengths. Manual check showed the leg lengths to be intact. The hip was dislocated and the trial was removed. The final 4 stem was impacted until it was well seated same level as the broach. We attempted to trial a -2.5 head, however, it felt too tight and we went back to a -5. The final -5 head was placed into position. The hip was reduced again, leg lengths found to be equal, she had excellent motion and stability. There was no impingement. The wound was copiously irrigated with antibiotic solution throughout the procedure. A total of 3 L normal saline and 500 mL of dilute iodine were used. The fascia was then closed longitudinally using #2 Stratafix, subcutaneous tissue with #0 Stratafix, and skin with a ZipLine. The wound was dressed with a DEONTE wound VAC dressing and she was awakened, taken to the recovery room in satisfactory condition. All sponge, needle, and instrument counts were correct. Lane Thomas MD BA/ALEJOL /[id number] Copies: ~ Electronically Signed By: LANE THOMAS MD 02/11/19 0802 PATIENT NAME: TRISTA MACHUCA OPERATIVE REPORT DATE OF : 61 REPORT #: [id number] PHYSICIAN: LANE THOMAS MD PCP: CONY SANTOYO PAC REPORT IS CONFIDENTIAL AND NOT TO BE RELEASED WITHOUT AUTHORIZATION
[2019-02-11] MEDS ORDERED: ASPIRIN EC325 MG PO (08:15)
[2019-02-11] MEDS ORDERED: OXYCODONE HCL5 MG PO (08:15)
[2019-02-11] MEDS ORDERED: CELECOXIB200 MG PO (08:15)
[2019-02-11] MEDS ORDERED: POLYETHYLENE GL17 GM PO (08:16)
[2019-02-11] MEDS ORDERED: GABAPENTIN600 MG PO (08:16)
--- NOTE | 2019-02-11 09:42 | NUR ---
VISITED WITH PT DISCUSSED HER SURGERY AND RECOVERY AND WHAT SHE IS TO EXPECT AND HER GOALS FOR RECOVERY. WE DISCUSSED HER STAYING IN THE PARAMETERS OF THE LIMITS OF MOBILITY AND NOT DOING TO MUCH. PT STATES SHE UNDERSTANDS THIS AND STATES HER WILL HELP KEEP HER IN LINE. STATES SHE IS SET UP WITH [facility] AND WILL FOLLOW THEIR RECOMMENDATIONS. STATES UNDERSTANDING OF HER MEDS AND SIDE EFFECTS OF THESE. DENIES FURTHER QUESTIONS AT THIS TIME.
--- NOTE | 2019-02-11 09:48 | NUR ---
THIS RN TO ROOM TO CHECK ON PT. PT REPORTS 6/10 PAIN. PAIN MEDICATION TITRATED UP TO FULL DOSE. 1PA UP TO RESTROOM. PT VOIDS WITHOUT ISSUE. PT DRESSED IN CLOTHES FROM HOME. 1PA BACK TO CHAIR. PT DENIES NASUEA. O2 AT 97% ON ROOM AIR. PT ANTITICPATING PHYSICAL THERAPY. NO ADDITIONAL REQUESTS OR COMPLAINTS AT THIS TIME. CALL LIGHT WITHIN REACH.
--- NOTE | 2019-02-11 10:22 | NUR ---
In and spoke with pt. She is sitting in chair at bedside. States she feels much better today. Denies nausea. Still has some lightheadedness at times, but is much improved. is in room. Pt appologizes for complaining. Notified she needs to let us know how she is feeling and this is not complaining. Pt has everything she needs at home. Plans on discharging today after she completes PT successfully.
--- NOTE | 2019-02-11 11:09 | NUR ---
PATIENT IN BED, IN ROOM. CRYO FILLED. PATIENT WORKING WITH OT. CALL LIGHT IN REACH. NO FURTHER NEEDS AT THIS TIME.
--- NOTE | 2019-02-11 11:55 | NUR ---
NOON ASSESSMENT DUE. SBA, FWW UP TO RESTROOM. PT VOIDS WITHOUT ISSUE. PT BACK TO BED, GENERALLY STEADY ON FEET. PT REPORTS 4/10 PAIN AND DENIES NEED FOR PAIN MEDICATION AT THIS TIME. PT DENIES NAUSEA. DRESSING SHOWS NO NEW DRAINAGE. GREEN LIGHT FLASHING ON DEONTE CANISTER. CRYO CUFF, FOOT PUMPS, ARGENIS HOSE, AND HEEL PROTECTORS IN PLACE. CMS INTACT. MEDICATIONS GIVEN. O2 98% ON ROOM AIR. NO ADDITIONAL REQUESTS OR COMPLAINTS AT THIS TIME. CALL LIGHT WITHIN REACH. AT BEDSIDE.
[2019-02-11] MEDS ORDERED: SELENIUM200 MC2 PO (12:34)
[2019-02-11] MEDS ORDERED: NEURONTIN100 MG PO (12:38)
--- NOTE | 2019-02-11 12:43 | NUR ---
MED REC COMPLETE
--- NOTE | 2019-02-11 14:27 | NUR ---
PT FINISHED WITH PHYSICAL THERAPY. PT REPORTS 6/10 PAIN. SEE MAR FOR MEDICATION GIVEN. PHYSICAL THERAPY STATES PT HAS BEEN CLEARED AND WOULD BE SAFE TO GO HOME. PT UPDATED ON PLAN OF CARE. NO ADDITIONAL REQUESTS OR COMPLAINTS AT THIS TIME. CALL LIGHT WITHIN REACH.
--- NOTE | 2019-02-11 15:14 | NUR ---
PT READY FOR DISCHRAGE. DISCHARGE INSTRUCTIONS REVIEWED WITH PT AND .PT AND VERBALIZE UNDERSTANDING OF INSTRUCTIONS, FOLLOW UP, DRESSING CHANGE APPOINTMENT, AND MEDICATIONS. VITALS TAKEN. PIV DC'D. PHARAMCIST TO BEDSIDE TO REVIEWED MEDICATIONS WITH PT. NO ADDITIONAL REQUESTS OR COMPLAINTS AT THIS TIME. PT WORKING WITH DESIGNER WRITER TO GET DRESSED AND PACKED.
--- NOTE | 2019-02-11 15:44 | NUR ---
PT DRESSED AND PACKED. PT TRANSFERES SELF TO WHEELCHAIR. ALL BELONGINGS WITH PT AND . PT WHEELED FROM MED/SURG. NO ADDITIONAL REQUESTS, COMPLAINTS, OR QUESTIONS.
== END 2019-02-11 15:40 | disposition home or self-care (01) ==
LOC: DS 06:55 → EDSTATUS 10:15 → DS 10:15 → MS 13:40 → DS 13:43 → MS 13:43 → DS 13:43
PROVIDERS: Specialist
PROC: 0SR90JZ Replacement of Right Hip Joint with Synthetic Substitute, Open Approach (ICD-10-PCS; principal; 2019-02-10 10:15)
DX: M16.11 Unilateral primary osteoarthritis, right hip (principal); E03.9 Hypothyroidism, unspecified; Z79.899 Other long term (current) drug therapy; Z87.891 Personal history of nicotine dependence; Z88.8 Allergy status to other drugs, medicaments and biological substances
CPT/HCPCS: 76942; 97161; C1776; J0690; J1100; J1885; J2250; J2704; J2795; J7121; J8540

== ENCOUNTER 2019-02-17 10:43 | Emergency (ER) | payer OTHER ==
[~2019-02-17] VITALS: Ht 182.9 cm; Wt 86.2 kg
--- OUTSIDE RECORDS SUMMARY | ~2019-02-17 | XMS | Encounter Summary ---
Demographics + + + | Address | [address] [facility] | | | [place] [address] | + + + | Home Phone | | + + + | Preferred Language | Unknown | + + + | Marital Status | | + + + | Nondenominational Affiliation | 1013 | + + + | Race | Unknown | + + + | Ethnic Group | Unknown | + + + Author + + + | Author | [facility] | | | and Jalilana | + + + | Organization | [facility] | | | and Jalilana [...] Team Providers + +------+ + | Care Mortgage Loan Assistant Name | Role | Phone | + +------+ + | Roselyn Cotter | PCP | | | PA | | | + +------+ + Reason for Visit + + + | Reason | Comments | + + + | Medication Refill | | + + + Encounter Details +--------+--------+ + + + | Date | Type | Department | Care Team | Description | +--------+--------+ + + + | 10/15/ | Refill | [facility] | Neema Queen | Medication Refill | | 2018 | | RHEUMATOLOGY [address] | | | | [address] | [address] | | | | | [place] | [place] [address] | | | | | [address] | [phone] | | | | | [phone] | | | +--------+--------+ + + + Social History + +-------+ [...]
--- OUTSIDE RECORDS SUMMARY | ~2019-02-17 | XMS | Encounter Summary ---
Demographics + + + | Address | [address] [facility] | | | [place] [address] | + + + | Home Phone | | + + + | Preferred Language | Unknown | + + + | Marital Status | | + + + | Spiritism Affiliation | 1013 | + + + | Race | Unknown | + + + | Ethnic Group | Unknown | + + + Author + + + | Author | [facility] | | | and Jalilana | + + + | Organization | [facility] | | | and Jalilana [...] Team Providers + +------+ + | Care Pm Head Cook Name | Role | Phone | + +------+ + | Roselyn Cotter | PCP | | | PA | | | + +------+ + Encounter Details +--------+ + + + + | Date | Type | Department | Care Team | Description | +--------+ + + + + | 02/10/ | Orders Only | [facility] | Neema Queen | | | 2015 | | RHEUMATOLOGY [address] | [address] | | | | | [address] | [facility] | | | | | [place] | [place] [address] | | | | | [address] | [phone] | | | | | [phone] | | | +--------+ + + + [...]
--- OUTSIDE RECORDS SUMMARY | ~2019-02-17 | XMS | Encounter Summary ---
Demographics + + + | Address | [address] [facility] | | | [place] [address] | + + + | Home Phone | | + + + | Preferred Language | Unknown | + + + | Marital Status | | + + + | Orthodoxy Affiliation | 1013 | + + + | Race | Unknown | + + + | Ethnic Group | Unknown | + + + Author + + + | Author | [facility] | | | and Jalilana | + + + | Organization | [facility] | | | and Jalilana [...] Team Providers + +------+ + | Care Fruit Or Nut Farmworker Name | Role | Phone | + +------+ + PCP | Unavailable | + +------+ + Encounter Details +--------+ + + + + | Date | Type | Department | Care Team | Description | +--------+ + + + + | 10/05/ | Hospital | [facility] | Alhaji Nuno | | | 2012 | Encounter | MED CTR EMERGENCY | MD [address] [address] | | | | | [place] [address] | [place] | | | | | [place] | [place] [address] | | | | | [address] | [phone] | | | | | [phone] | | | +--------+ + + + [...] Not on filedocumented as of this encounter Procedures + +--------+ + + + | Procedure Name | Priori | Date/Time | Associated Diagnosis | Comments | | | ty | | | | + +--------+ + + + | XR CHEST AP PORTABLE | Routin | 10/05/2012 | | Results for this | | | e | 11:28 AM | | procedure are in the | | | | PDT | | results section. | + +--------+ + + + | CORTISOL, AM | Routin | 10/05/2012 | | Results for this | | | e | 6:52 AM | | procedure are in the | | | | PDT | | results section. | + +--------+ + + + | TROPONIN I | Routin | 10/05/2012 | | Results for this | | | e | 6:52 AM | | procedure are in the | | | | PDT | | results section. | + +--------+ + + + | CBC WITH | Routin | 10/05/2012 | | Results for this | | DIFFERENTIAL | e | 6:52 AM | | procedure are in the | | | | PDT | | results section. | + +--------+ + + + | COMPREHENSIVE | Routin | 10/05/2012 | | Results for this | | METABOLIC PANEL | e | 6:52 AM | | procedure are in the | | | | PDT | | results section. | + +--------+ + + + documented in this encounter Results XR Chest AP Portable (10/05/2012 11:28 AM PDT) + + | Specimen | + + | | + + + + + | Narrative | Performed At | + + + | [facility] | [place] | | Department [address] [facility], [place] | [facility] | | [ rep [address]] [ rep [facility] | | st zip] Signed | - IMAGING | | | | | Patient Name: TRISTA MENDOZA | | | Physician: EFRAIN : 1965 Age: 47 Sex: F Unit | | | #: [id number] Exam Date: 10/05/12 Location: | | | ER Report #: [id number] Page: | | | %(RAD)RES..mtdd.print.filter("pg") of %(RAD) | | | RES..mtdd.print.filter("tpg") | | | | | | Accession Number: [id number] | | | PORTABLE CHEST CLINICAL HISTORY: CHEST PAIN. | | | COMPARISON: None. FINDINGS: The heart size is | | | normal. The hilar regions and pulmonary vasculature are normal. | | | There are no areas of abnormal lung density. There is no effusion | | | or pneumothorax. No bony abnormalities are seen. | | | IMPRESSION: NEGATIVE STUDY OF THE CHEST. Dictated | | | Date/Time: 10/05/2012 11:28 Transcribed Date/Time: 10/05/2012 | | | 11:41 Library Media Specialist: <<Signature | | | on File>> | | | | | | Angel Chambers MD10/06/12 [id number] <Electronically signed by | | | Angel Chambers MD> Angel Chambers MD 10/05/12 | | | 1128 Library Media Specialist: Raysa Fajnblgdrwhxt70/24/13 1141 | | | Alhaji Nuno MD | | + + + + + + + + | Performing | Address | City/State/Zipcode | Phone Number | | Organization | | | | + + + + + | [facility] | [address] | [place] | [phone] | | [facility] | | [address] | | | - IMAGING | | | | + + + + + CBC with Differential (10/05/2012 6:52 AM PDT) + + + + + + | Component | Value | Ref Range | Performed | Pathologist | | | | | At | Signature | + + + + + + | MANUAL | NO | | [facility] | | | DI[facility] | | | [facility] | | | [facility] ? | | | [facility] | | | | | | [facility] - | | | | | | LABORATORY | | + + + + + + | WBC | 3.9 (L) | 4.0 - 11.0 K/uL | [facility] | [facility] | | | | | [facility] | | | | | | [facility] - | | | | | | LABORATORY | | + + + + + + | RBC | 3.58 (L) | 3.70 - 5.20 | [facility] | | | | | M/uL | [facility] | | | | | | [facility] | | | | | | CENTER - | | | | | | LABORATORY | | + + + + + + | Hemoglobin | 11.2 (L) | 11.5 - 16.0 | [facility] | | | | | gm/dL | [facility] | | | | | | [facility] | | | | | | CENTER - | | | | | | LABORATORY | | + + + + + + | Hematocrit | 33.3 (L) | 34.0 - 47.0 % | [facility] | | | | | | [facility] | | | | | | [facility] | | | | | | CENTER - | | | | | | LABORATORY | | + + + + + + | MCV | 93.1 | 83.0 - 101.0 fL | [facility] | | | | | | [facility] | | | | | | [facility] | | | | | | CENTER - | | | | | | LABORATORY | | + + + + + + | MCH | 31.3 | 28.0 - 35.0 pg | [facility] | | | | | | [facility] | | | | | | [facility]ICAL | | | | | | CENTER - | | | | | | LABORATORY | | + + + + + + | MCHC | 33.6 | 32.0 - 36.0 | [facility] | | | | | g/dL | [facility] | | | | | | [facility]ICAL | | | | | | CENTER - | | | | | | LABORATORY | | + + + + + + | RDW-CV | 14.1 | <15.0 % | [facility] | | | | | | [facility] | | | | | | [facility]ICAL | | | | | | CENTER - | | | | | | LABORATORY | | + + + + + + | Platelet | 90 (L) | 140 - 440 K/uL | [facility] | | | Count | | | [facility] | | | | | | MEDICAL | | | | | | CENTER - | | | | | | LABORATORY | | + + + + + + | % | 58.7 | 45 - 75 % | [facility] | | | Neutrophils | | | [facility] | | | | | | MEDICAL | | | | | | CENTER - | | | | | | LABORATORY | | + + + + + + | % | 29.8 | 20 - 45 % | [facility] | | | Lymphocytes | | | [facility] | | | | | | MEDICAL | | | | | | CENTER - | | | | | | LABORATORY | | + + + + + + | % Monocytes | 8.8 | 4 - 12 % | [facility] | | | | | | [facility] | | | | | | [facility]ICAL | | | | | | CENTER - | | | | | | LABORATORY | | + + + + + + | % | 2.0 | 0 - 5 % | [facility] | | | Eosinophils | | | [facility] | | | | | | MEDICAL | | | | | | CENTER - | | | | | | LABORATORY | | + + + + + + | % Basophils | 0.7 | 0 - 1 % | [facility] | | | | | | [facility] | | | | | | [facility]ICAL | | | | | | CENTER - | | | | | | LABORATORY | | + + + + + + | Absolute | 2.3 | 1.5 - 6.6 K/uL | [facility] | | | Neutrophils | | | [facility] | | | | | | [facility]ICAL | | | | | | CENTER - | | | | | | LABORATORY | | + + + + + + | Absolute | 1.2 | 0.6 - 3.2 K/uL | [facility] | | | Lymphocytes | | | [facility] | | | | | | MEDICAL | | | | | | CENTER - | | | | | | LABORATORY | | + + + + + + | Absolute | 0.3 | 0.0 - 1.0 K/uL | [facility] | | | Monocytes | | | [facility] | | | | | | MEDICAL | | | | | | CENTER - | | | | | | LABORATORY | | + + + + + + | Absolute | 0.1 | 0.0 - 0.4 K/uL | [facility] | | | Eosinophils | | | [facility] | | | | | | MEDICAL | | | | | | CENTER - | | | | | | LABORATORY | | + + + + + + | Absolute | 0.0 | 0.0 - 0.1 K/uL | [facility] | | | Basophils | | | [facility] | | | | | | MEDICAL | | | | | | CENTER - | | | | | | LABORATORY | | + + + + + + + + | Specimen | + + | | + + + + + + + | Performing | Address | City/State/Zipcode | Phone Number | | Organization | | | | + + + + + | [facility] | [address] | [place] | [phone] | | [facility] | | [address] | | | - LABORATORY | | | | + + + + + | [facility] | [address] | [place] | | | [facility] | | [address] | | | - LABORATORY | | | | + + + + + Cortisol, AM (10/05/2012 6:52 AM PDT) + +-------+ + + + | Component | Value | Ref Range | Performed | Pathologist | | | | | At | Signature | + +-------+ + + + | CORTISOL, | 19.9 | 6.7 - 22.6 | [facility] | | | AM | | ug/dL | [facility] | | | | | | MEDICAL | | | | | | CENTER - | | | | | | LABORATORY | | + +-------+ + + + + + | Specimen | + + | | + + + + + + + | Performing | Address | City/State/Zipcode | Phone Number | | Organization | | | | + + + + + | [facility] | [address] | [place], [place] | [phone] | | [facility] | | [address] | | | - LABORATORY | | | | + + + + + | [facility] | [address] | [place], [place] | | | [facility] | | [address] | | | - LABORATORY | | | | + + + + + Comprehensive Metabolic Panel (10/05/2012 6:52 AM PDT) + + + + + + | Component | Value | Ref Range | Performed | Pathologist | | | | | At | Signature | + + + + + + | Glucose | 85 | 70 - 109 mg/dL | [facility] | | | | | | [facility] | | | | | | MEDICAL | | | | | | CENTER - | | | | | | LABORATORY | | + + + + + + | Calcium | 7.7 (L) | 8.3 - 10.5 | [facility] | | | | | mg/dL | [facility] | | | | | | MEDICAL | | | | | | CENTER - | | | | | | LABORATORY | | + + + + + + | Alkaline | 37 (L) | 40 - 110 IU/L | [facility] | | | Phosphatase | | | [facility] | | | | | | MEDICAL | | | | | | CENTER - | | | | | | LABORATORY | | + + + + + + | AST | 21 | 10 - 42 IU/L | [facility] | | | | | | [facility] | | | | | | MEDICAL | | | | | | CENTER - | | | | | | LABORATORY | | + + + + + + | ALT | 20 | 6 - 45 IU/L | [facility] | | | | | | [facility] | | | | | | MEDICAL | | | | | | CENTER - | | | | | | LABORATORY | | + + + + + + | Bilirubin | 0.7 | 0.2 - 1.0 mg/dL | [facility] | | | Total | | | [facility] | | | | | | MEDICAL | | | | | | CENTER - | | | | | | LABORATORY | | + + + + + + | Total | 5.2 (L) | 6.0 - 7.8 gm/dL | [facility] | | | Protein | | | [facility] | | | | | | [facility] | | | | | | CENTER - | | | | | | LABORATORY | | + + + + + + | Albumin | 3.3 | 3.2 - 5.0 gm/dL | [facility] | | | | | | [facility] | | | | | | [facility] | | | | | | CENTER - | | | | | | LABORATORY | | + + + + + + | BUN | 20 (H) | 7 - 18 mg/dL | [facility] | | | | | | [facility] | | | | | | [facility] | | | | | | CENTER - | | | | | | LABORATORY | | + + + + + + | Creatinine | 0.74 | 0.60 - 1.30 | [facility] | | | | | mg/dL | [facility] | | | | | | [facility] | | | | | | CENTER - | | | | | | LABORATORY | | + + + + + + | Estimated | >60Comment: For | >60 mL/min/A | [facility] | | | GFR | -Americans, | | [facility] | | | | please multiply the | | MEDICAL | | | | result by 1.210 | | CENTER - | | | | This is an estimated | | LABORATORY | | | | GFR and is based on a | | | | | | standard adult | | | | | | body mass (A=1.73m2) and | | | | | | serum creatinine | | | | + + + + + + | BUN/Creatin | 27.0 (H) | 12 - 20 | [facility] | | | ine Ratio | | | [facility] | | | | | | MEDICAL | | | | | | CENTER - | | | | | | LABORATORY | | + + + + + + | Na | 138 | 136 - 149 mEq/L | [facility] | | | | | | [facility] | | | | | | [facility]ICAL | | | | | | CENTER - | | | | | | LABORATORY | | + + + + + + | K | 3.4 (L) | 3.5 - 5.1 mEq/l | [facility] | | | | | | [facility] | | | | | | MEDICAL | | | | | | CENTER - | | | | | | LABORATORY | | + + + + + + | Cl | 106 | 98 - 109 mEq/l | [facility] | | | | | | [facility] | | | | | | MEDICAL | | | | | | CENTER - | | | | | | LABORATORY | | + + + + + + | CO2 | 24 | 24 - 31 mEq/L | [facility] | | | | | | [facility] | | | | | | MEDICAL | | | | | | CENTER - | | | | | | LABORATORY | | + + + + + + | Anion Gap | 11.4 | 6.0 - 17.0 | [facility] | | | | | | [facility] | | | | | | MEDICAL | | | | | | CENTER - | | | | | | LABORATORY | | + + + + + + + + | Specimen | + + | | + + + + + + + | Performing | Address | City/State/Zipcode | Phone Number | | Organization | | | | + + + + + | [facility] | [address] | [place], [place] | [phone] | | [facility] | | [address] | | | - LABORATORY | | | | + + + + + | [facility] | [address] | [place] | | | [facility] | | [address] | | | - LABORATORY | | | | + + + + + Troponin I (10/05/2012 6:52 AM PDT) + + + + + + | Component | Value | Ref Range | Performed | Pathologist | | | | | At | Signature | + + + + + + | Troponin I | 0.01Comment: Reference | <0.06 ng/mL | [facility] | | | | Ranges: | | [facility] | | | | 0.00-0.06 = NORMAL | | MEDICAL | | | | >0.06 | | CENTER - | | | | = SUSPICIOUS FOR | | LABORATORY | | | | MYOCARDIAL DAMAGE | | | | | | NOTE: Values greater | | | | | | than 0.50 ng/mL have | | | | | | been shown to be | | | | | | strongly associated with | | | | | | acute myocardial | | | | | | infarction. The | | | | | | [employer] | | | | | | Cardiology (ACC) | | | | | | recommends a decision | | | | | | limit of 0.06 ng/mL for | | | | | | this assay. Results | | | | | | greater than 0.06 can | | | | | | reflect a pre-infarct | | | | | | acute coronary | | | | | | syndrome, but can also | | | | | | reflect myocardial | | | | | | necrosis or injury | | | | | | that is not due to | | | | | | coronary artery | | | | | | disease. Some of these | | | | | | causes are sepsis, | | | | | | hypocolemia, atrial | | | | | | fibrillation, heart | | | | | | failure, pulmonary | | | | | | embolism, myocarditis, | | | | | | myocardial contusion, | | | | | | and renal failure. The | | | | | | diagnosis of myocardial | | | | | | infarction should be | | | | | | based on a combination | | | | | | of the patient's | | | | | | clinical presentation | | | | | | and the clinical | | | | | | laboratory test results | | | | | | (especially serial | | | | | | troponin levels). | | | | + + + + + + + + | Specimen | + + | | + + + + + + + | Performing | Address | City/State/[facility] | Phone Number | | Organization | | | | + + + + + | [facility] | [address] | [place] | [phone] | | [facility] | | [address] | | | - LABORATORY | | | | + + + + + | [facility] | [address] | [place] | | | [facility] | | [address] | | | - LABORATORY | | | | + + + + + documented in this encounter Visit Diagnoses Not on filedocumented in this encounter
--- OUTSIDE RECORDS SUMMARY | ~2019-02-17 | XMS | Encounter Summary ---
Demographics + + + | Address | [address] [facility] | | | [place] [address] | + + + | Home Phone | | + + + | Preferred Language | Unknown | + + + | Marital Status | | + + + | Mandaeism Affiliation | 1013 | + + + | Race | Unknown | + + + | Ethnic Group | Unknown | + + + Author + + + | Author | [facility] | | | and [place]al[place] | + + + | Organization | [facility] | | | and [place] [...] Team Providers + +------+ + | Care Wastewater Analyst Lab Analyst Name | Role | Phone | + +------+ + | Roselyn Cotter | PCP | | | [place] | | | + +------+ + Encounter Details +--------+ + + + + | Date | Type | Department | Care Team | Description | +--------+ + + + + | 08/01/ | Orders Only | [facility] | [place] [place] | | | 2017 | | [address] | [place] [address] | | | | | [place] | [facility] | | | | | [phone] | [place] [address] | | | | | [phone] | [phone] | | | | | | | | +--------+ + + + [...] | + +--------+ + + + | EXTERNAL LAB: [facility] | Routin | 08/01/2016 | | Results for this | | | e | 3:41 PM | | procedure are in the | | | | PDT | | results section. | + +--------+ + + + documented in this encounter Results External Lab: CBC (08/01/2016 3:41 PM PDT) + + + + + + | Component | Value | Ref Range | Performed | Pathologist | | | | | At | Signature | + + + + + + | WBC | 5.34 | 3.80 - 11.00 | EXTERNAL | | | | | 10*3/uL | LAB | | + + + + + + | RED CELL | 4.58 | 3.70 - 5.10 | EXTERNAL | | | COUNT | | 10*6/uL | LAB | | + + + + + + | Hgb | 14.0 | 11.3 - 15.5 | EXTERNAL | | | | | g/dL | LAB | | + + + + + + | Hematocrit, | 42.2 | 34.0 - 46.0 % | EXTERNAL | | | POC | | | LAB | | + + + + + + | MCV | 92.2 | 80.0 - 100.0 fL | EXTERNAL | | | | | | LAB | | + + + + + + | MCH | 30.6 | 27.0 - 34.0 pg | EXTERNAL | | | | | | LAB | | + + + + + + | MCHC | 33.2 | 32.0 - 35.5 | EXTERNAL | | | | | g/dL | LAB | | + + + + + + | RDW-CV | 43.8 | 37 - 53 fL | EXTERNAL | | | | | | LAB | | + + + + + + | Platelet | 142 (L) | 150 - 400 | EXTERNAL | | | Count | | 10*3/uL | LAB | | | Plasma | | | | | + + + + + + | MPV | 10.1 | fL | EXTERNAL | | | | | | LAB | | + + + + + + | Differentia | AUTOMATED | | EXTERNAL | | | l Type | | | LAB | | + + + + + + | % Segmented | 41.73 | % | EXTERNAL | | | | | | LAB | | | Neutrophils | | | | | + + + + + + | % | 46.77 | % | EXTERNAL | | | Lymphocytes | | | LAB | | + + + + + + | % Monocytes | 8.91 | % | EXTERNAL | | | | | | LAB | | + + + + + + | % | 1.94 | % | EXTERNAL | | | Eosinophils | | | LAB | | + + + + + + | % Basophils | 0.65 | % | EXTERNAL | | | | | | LAB | | + + + + + + | Absolute | 2.23 | 1.90 - 7.40 | EXTERNAL | | | Segmented | | 10*3/uL | LAB | | | Neutrophils | | | | | + + + + + + | Absolute | 2.50 | 1.00 - 3.90 | EXTERNAL | | | Lymphocytes | | 10*3/uL | LAB | | + + + + + + | Absolute | 0.48 | 0.00 - 0.80 | EXTERNAL | | | Monocytes | | 10*3/uL | LAB | | + + + + + + | Absolute | 0.10 | 0.00 - 0.50 | EXTERNAL | | | Eosinophils | | 10*3/uL | LAB | | + + + + + + | Absolute | 0.04 | 0.00 - 0.10 | EXTERNAL | | | Basophils | | 10*3/uL | LAB | | + + + + + + + + | Specimen | + + | Blood specimen | | (specimen) | + + + +---------+ + + | Performing | Address | City/State/Zipcode | Phone Number | | Organization | | | | + +---------+ + + | EXTERNAL LAB | | | | + +---------+ + + documented in this encounter Visit Diagnoses Not on filedocumented in this encounter"
--- OUTSIDE RECORDS SUMMARY | ~2019-02-17 | XMS | Encounter Summary ---
Demographics + + + | Address | [address] [facility] | | | [place] [address] | + + + | Home Phone | | + + + | Preferred Language | Unknown | + + + | Marital Status | | + + + | Taoist Affiliation | 1013 | + + + | Race | Unknown | + + + | Ethnic Group | Unknown | + + + Author + + + | Author | [facility] | | | and [place] | + + + | Organization | [facility] | | | and [place] [...] Team Providers + +------+ + | Care Slot Operations Manager Name | Role | Phone | + +------+ + | Roselyn Cotter | PCP | | | [place] | | | + +------+ + Encounter Details +--------+ + + + + | Date | Type | Department | Care Team | Description | +--------+ + + + + | 04/12/ | Orders Only | [facility] | Conversion | | | 2016 | | RHEUMATOLOGY [address] | Transaction, | | | | | [address] | Provider Unknown | | | | | [place] | [phone] | | | | | [address] | | | | | | [phone] | | | +--------+ + + + [...] +--------+ + + + | EXTERNAL LAB: CBC | Routin | 04/13/2015 | | Results for this | | | e | 12:00 AM | | procedure are in the | | | | PST | | results section. | + +--------+ + + + | SEDIMENTATION RATE, | Routin | 04/13/2015 | | Results for this | | AUTOMATED | e | 12:00 AM | | procedure are in the | | | | PST | | results section. | + +--------+ + + + | COMPREHENSIVE | Routin | 04/13/2015 | | Results for this | | METABOLIC PANEL | e | 12:00 AM | | procedure are in the | | | | PST | | results section. | + +--------+ + + + documented in this encounter Results Sedimentation rate, automated (04/13/2015 12:00 AM PST) + +-------+ + + + | Component | Value | Ref Range | Performed | Pathologist | | | | | At | Signature | + +-------+ + + + | Sed Rate | 19 | | EXTERNAL | | | | | | LAB | | + +-------+ + + + + + | Specimen | + + | Blood specimen | | (specimen) | + + + +---------+ + + | Performing | Address | City/State/Zipcode | Phone Number | | Organization | | | | + +---------+ + + | EXTERNAL LAB | | | | + +---------+ + + External Lab: CBC (04/13/2015 12:00 AM PST) + +-------+ + + + | Component | Value | Ref Range | Performed | Pathologist | | | | | At | Signature | + +-------+ + + + | WBC | 5.1 | 10 | EXTERNAL | | | | | | LAB | | + +-------+ + + + | RED CELL | 4.32 | 10 | EXTERNAL | | | COUNT | | | LAB | | + +-------+ + + + | Hgb | 13.2 | g/dL | EXTERNAL | | | | | | LAB | | + +-------+ + + + | Hematocrit, | 39.3 | % | EXTERNAL | | | POC | | | LAB | | + +-------+ + + + | MCV | 91.0 | fL | EXTERNAL | | | | | | LAB | | + +-------+ + + + | MCH | 31 | pg | EXTERNAL | | | | | | LAB | | + +-------+ + + + | MCHC | 34 | g/dL | EXTERNAL | | | | | | LAB | | + +-------+ + + + | Platelet | 128 | K/ L | EXTERNAL | | | Count | | | LAB | | | Plasma | | | | | + +-------+ + + + | RDW-CV | 14.1 | % | EXTERNAL | | | | | | LAB | | + +-------+ + + + | MPV | | fL | EXTERNAL | | | | | | LAB | | + +-------+ + + + | Differentia | | | EXTERNAL | | | l Type | | | LAB | | + +-------+ + + + | % Segmented | 47.7 | % | EXTERNAL | | | | | | LAB | | | Neutrophils | | | | | + +-------+ + + + | % | 41.6 | % | EXTERNAL | | | Lymphocytes | | | LAB | | + +-------+ + + + | % Monocytes | 8.0 | % | EXTERNAL | | | | | | LAB | | + +-------+ + + + | % | 1.9 | % | EXTERNAL | | | Eosinophils | | | LAB | | + +-------+ + + + | % Basophils | 0.8 | % | EXTERNAL | | | | | | LAB | | + +-------+ + + + | Absolute | | / L | EXTERNAL | | | Segmented | | | LAB | | | Neutrophils | | | | | + +-------+ + + + | Absolute | | / L | EXTERNAL | | | Lymphocytes | | | LAB | | + +-------+ + + + | Absolute | | / L | EXTERNAL | | | Monocytes | | | LAB | | + +-------+ + + + | Absolute | | / L | EXTERNAL | | | Eosinophils | | | LAB | | + +-------+ + + + | Absolute | | / L | EXTERNAL | | | Basophils | | | LAB | | + +-------+ + + + + + | Specimen | + + | Blood specimen | | (specimen) | + + + +---------+ + + | Performing | Address | City/State/Zipcode | Phone Number | | Organization | | | | + +---------+ + + | EXTERNAL LAB | | | | + +---------+ + + Comprehensive Metabolic Panel (04/13/2015 12:00 AM PST) + +-------+ + + + | Component | Value | Ref Range | Performed | Pathologist | | | | | At | Signature | + +-------+ + + + | Glucose, | 87 | mg/dL | EXTERNAL | | | Fasting | | | LAB | | + +-------+ + + + | BUN | 29 | mg/dL | EXTERNAL | | | | | | LAB | | + +-------+ + + + | Creatinine | 0.88 | mg/dL | EXTERNAL | | | | | | LAB | | + +-------+ + + + | BUN/Creatin | 33.0 | | EXTERNAL | | | ine Ratio | | | LAB | | + +-------+ + + + | Calcium | 9.7 | mg/dL | EXTERNAL | | | | | | LAB | | + +-------+ + + + | Protein, | 6.9 | g/dL | EXTERNAL | | | Total | | | LAB | | + +-------+ + + + | Albumin | 4.7 | | EXTERNAL | | | | | | LAB | | + +-------+ + + + | Globulin | 2.2 | | EXTERNAL | | | | | | LAB | | + +-------+ + + + | A/G Ratio | 2.1 | | EXTERNAL | | | | | | LAB | | + +-------+ + + + | Bilirubin | 0.5 | mg/dL | EXTERNAL | | | Total | | | LAB | | + +-------+ + + + | ALP, | 61 | | EXTERNAL | | | External | | | LAB | | + +-------+ + + + | ALT | 14 | U/L | EXTERNAL | | | | | | LAB | | + +-------+ + + + | AST | 16 | U/L | EXTERNAL | | | | | | LAB | | + +-------+ + + + | Na | 136 | mmol/L | EXTERNAL | | | | | | LAB | | + +-------+ + + + | K | 4.3 | mmol/L | EXTERNAL | | | | | | LAB | | + +-------+ + + + | Cl | 102 | mmol/L | EXTERNAL | | | | | | LAB | | + +-------+ + + + | CO2 | 24 | mmol/L | EXTERNAL | | | | | | LAB | | + +-------+ + + + | Anion Gap | 14.3 | mmol/L | EXTERNAL | | | | | | LAB | | + +-------+ + + + | Estimated | 68 | mg/dL | EXTERNAL | | | GFR | | | LAB | | + +-------+ + + + [...]
--- OUTSIDE RECORDS SUMMARY | ~2019-02-17 | XMS | Encounter Summary ---
Demographics + + + | Address | [address] [facility] | | | [place] [address] | + + + | Home Phone | | + + + | Preferred Language | Unknown | + + + | Marital Status | | + + + | Denominational Affiliation | 1013 | + + + | Race | Unknown | + + + | Ethnic Group | Unknown | + + + Author + + + | Author | [facility] | | | and Jalilana | + + + | Organization | [facility] | | | and Jalilana [...] Team Providers + +------+ + | Care Mechanic Field Service Name | Role | Phone | + +------+ + | Roselyn Cotter | PCP | | | PA | | | + +------+ + Encounter Details +--------+ + + + + | Date | Type | Department | Care Team | Description | +--------+ + + + + | 02/10/ | Orders Only | [facility] | Neema Queen | | | 2015 | | RHEUMATOLOGY [address] | RAYMOND Vargas [address] | | | | | [address] | [facility] | | | | | [place] | [place] [address] | | | | | [address] | [phone] | | | | | [phone] | | | +--------+ + + + [...]
--- OUTSIDE RECORDS SUMMARY | ~2019-02-17 | XMS | Encounter Summary ---
Demographics + + + | Address | [address] [facility] | | | [place] [address] | + + + | Home Phone | | + + + | Preferred Language | Unknown | + + + | Marital Status | | + + + | Roman Catholic Affiliation | 1013 | + + + | Race | Unknown | + + + | Ethnic Group | Unknown | + + + Author + + + | Author | [facility] | | | and Jalilana | + + + | Organization | [facility] | | | and Jalilana [...] Team Providers + +------+ + | Care Manager Wholesale Name | Role | Phone | + +------+ + | Unknown, Practitioner MD | PCP | + | + +------+ + Encounter Details +--------+ + + + + | Date | Type | Department | Care Team | Description | +--------+ + + + + | 01/20/ | Hospital | C GENERIC IP | Conversion | Pelvic pain | | 2014 | Encounter | CONVERSION [address] | Transaction, | | | | [address] | Provider Unknown | | | | | [place], [place] | [phone] | | | | | [phone] | (Fax) | | | | | | | [...] + + documented as of this encounter Medications at Time of Discharge + + + +---------+ + + | Medication | Sig | Dispensed | Refills | Start | End Date | | | | | | Date | | + + + +---------+ + + | traMADol (ULTRAM) | Take 50 mg by mouth | | 0 | 01/20/20 | | | 50 mg tablet | every 6 (six) hours | | | 15 | | | | as needed for Pain. | | | | | + + + +---------+ + + documented as of this encounter Plan of Treatment Not on filedocumented as of this encounter Procedures + +--------+ + + + | Procedure Name | Priori | Date/Time | Associated Diagnosis | Comments | | | ty | | | | + +--------+ + + + | MRI PELVIS WO | Routin | 01/13/2015 | | Results for this | | CONTRAST | e | 7:54 AM | | procedure are in the | | | | PST | | results section. | + +--------+ + + + documented in this encounter Results MRI Pelvis wo Contrast (01/13/2015 7:54 AM PST) + + | Specimen | + + | | + + + + + | Narrative | Performed At | + + + | This is a non-reportable procedure without a radiologist report and | | | is used for image storage only | | + + + + + | Procedure Note | + + | Gurvinder Chan - 09/27/2018 10:48 AM PDT This is a non-reportable procedure | | without a radiologist report and isused for image storage only | + + documented in this encounter Visit Diagnoses + + | Diagnosis | + + | Pelvic pain | + + documented in this encounter"
--- OUTSIDE RECORDS SUMMARY | ~2019-02-17 | XMS | Encounter Summary ---
Demographics + + + | Address | [address] [facility] | | | [place] [address] | + + + | Home Phone | | + + + | Preferred Language | Unknown | + + + | Marital Status | | + + + | Yarsanism Affiliation | 1013 | + + + | Race | Unknown | + + + | Ethnic Group | Unknown | + + + Author + + + | Author | [facility] | | | and Jalilana | + + + | Organization | [facility] | | | and [...] Team Providers + +------+ + | Care Natural Gas Engineer Name | Role | Phone | + +------+ + | Roselyn Cotter | PCP | | | PA | | | + +------+ + Encounter Details +--------+ + + + + | Date | Type | Department | Care Team | Description | +--------+ + + + + | 09/13/ | Orders Only | [facility] | Iker Rowe | | | 2017 | | [address] | [address] | | | | | [address] | [address] | | | | | [place] | [place] [address] | | | | | [address] | [phone] | | | | | [phone] | | | +--------+ + + + [...] + +--------+ + + + | XR FOOT RIGHT 3 + VW | Routin | 09/13/2016 | | Results for this | | | e | 2:52 PM | | procedure are in the | | | | PDT | | results section. | + +--------+ + + + documented in this encounter Results XR Foot Right 3 + Vw (09/13/2016 2:52 PM PDT) + + | Specimen | + + | | + + + + + | Narrative | Performed At | + + + | | | | | | | Three views of the right foot demonstrate a calcaneal inclination | | | angle within normal limits. Bone density within normal limits. Mild | | | spurring to the dorsal talonavicular joint. Intermetatarsal angle | | | measures 9 degrees. Rectus great toe position with mild bony | | | prominence to the medial first metatarsal head. IMPRESSION Mild | | | bunion deformity, right foot, with mild spurring to the dorsal | | | talonavicular joint. Read by IKER ROWE DPM 09/18/2016 06:46 | | | A | | | PM | | + + + + + | Procedure Note | + + | Gurvinder Chan Conversion - 10/03/2018 7:20 PM PDT | | | | | | Three views of the right foot demonstrate a calcaneal inclination angle | | within normal limits. Bone density within normal limits. Mild spurring to | | the dorsal talonavicular joint. Intermetatarsal angle measures 9 degrees. | | Rectus great toe position with mild bony prominence to the medial first | | metatarsal head. | | | | IMPRESSION | | Mild bunion deformity, right foot, with mild spurring to the dorsal | | talonavicular joint. | | | | Read by IKER ROWE DPM 09/18/2016 06:46 A | | | | | + + documented in this encounter Visit Diagnoses Not on filedocumented in this encounter"
--- OUTSIDE RECORDS SUMMARY | ~2019-02-17 | XMS | Encounter Summary ---
Demographics + + + | Address | [address] [facility] | | | [place] [address] | + + + | Home Phone | | + + + | Preferred Language | Unknown | + + + | Marital Status | | + + + | Faith Affiliation | 1013 | + + + | Race | Unknown | + + + | Ethnic Group | Unknown | + + + Author + + + | Author | [facility] | | | and Jalilana | + + + | Organization | [facility] | | | and Jalilana [...] Team Providers + +------+ + | Care Bottle Feeder Name | Role | Phone | + +------+ + | Roselyn Cotter | PCP | | | PA | | | + +------+ + Encounter Details +--------+ + + + + | Date | Type | Department | Care Team | Description | +--------+ + + + + | 01/19/ | Orders Only | [facility] | Conversion | | | 2014 | | CONVERSION [address] | Transaction, | | | | | [address] | Provider Unknown | | | | | [place] | [phone] | | | | | [address] | | | | | | [phone] | | | +--------+ + + + [...]
--- OUTSIDE RECORDS SUMMARY | ~2019-02-17 | XMS | Encounter Summary ---
Demographics + + + | Address | [address] [facility] | | | [place] [address] | + + + | Home Phone | | + + + | Preferred Language | Unknown | + + + | Marital Status | | + + + | Christianity Affiliation | 1013 | + + + | Race | Unknown | + + + | Ethnic Group | Unknown | + + + Author + + + | Author | [facility] | | | and Jalilana | + + + | Organization | [facility] | | | and Jalilana | [...] Team Providers + +------+ + | Care Rn Community Name | Role | Phone | + [...] Provider Unknown | | | | | [place], [place] | [phone] | | | | | [phone] | (Fax) | | | | | [...]
--- OUTSIDE RECORDS SUMMARY | ~2019-02-17 | XMS | Encounter Summary ---
Demographics + + + | Address | [address] [facility] | | | [place] [address] | + + + | Home Phone | | + + + | Preferred Language | Unknown | + + + | Marital Status | | + + + | Adventist Affiliation | 1013 | + + + | Race | Unknown | + + + | Ethnic Group | Unknown | + + + Author + + + | Author | [facility] | | | and Jalilana | + + + | Organization | [facility] | | | [...] Team Providers + +------+ + | Care Law Firm Partner Name | Role | Phone | + +------+ + PCP | Unavailable | + +------+ + Encounter Details +--------+ + + + + | Date | Type | Department | Care Team | Description | +--------+ + + + + | 08/24/ | Hospital | [facility] | Eugenio Rowe, | | | 2000 | Encounter | MED CTR GENERIC OP | MD [address] | | | | | CONV DEPT [address] | [place] | | | | | [place], | [address] | | | | | [place] [address] | | | | | | [phone] | | | +--------+ + + + [...]
--- OUTSIDE RECORDS SUMMARY | ~2019-02-17 | XMS | Clinical Summary ---
Demographics + + + | Address | [address] [facility] | | | [place] [address] | + + + | Home Phone | | + + + | Preferred Language | Unknown | + + + | Marital Status | | + + + | Adventist Affiliation | 1013 | + + + | Race | Unknown | + + + | Ethnic Group | Unknown | + + + Author + + + | Author | [facility] | | | and Jalilana | + + + | Organization | [facility] | | | and [...] Team Providers + +------+ + | Care Flatbed Owner Operator Name | Role | Phone | [...] Overview: Added automatically from request for surgery [id number] | + + + + + | [...] +-------+--------+ +--------+-------+---------+------+ | BCBS | BCBS | [id number] | | | | PPO | | [...] Person | Self [birth year] | [address] | | | al/Fam | | 1966 | [phone] | [address] [place] | | | miles | | | 2 (Home) | [address] | | | | | | [phone] | | | | | | | 0 (Work) | | + +--------+ +--------+ + + Advance Directives + + + + + | Type | Date Recorded | Patient | Explanation | | | | Grain Broker | | + + + + + | Power of | | | | | Window Glass Cutter Off | | | | + + + + + | Advance | | | | | Directive | | | | + + + + +"
--- OUTSIDE RECORDS SUMMARY | ~2019-02-17 | XMS | Encounter Summary ---
Demographics + + + | Address | [address] [facility] | | | [place] [address] | + + + | Home Phone | | + + + | Preferred Language | Unknown | + + + | Marital Status | | + + + | Hindu Affiliation | 1013 | + + + | Race | Unknown | + + + | Ethnic Group | Unknown | + + + Author + + + | Author | [facility] | | | and Jalilana | + + + | Organization | [facility] | | | and Jalilana [...] Team Providers + +------+ + | Care Space And Missile Defense Operations Name | Role | Phone | + +------+ + | Roselyn Cotter | PCP | | | PA | | | + +------+ + Encounter Details +--------+ + + + + | Date | Type | Department | Care Team | Description | +--------+ + + + + | 09/13/ | Orders Only | [facility] | Iker Rowe | | | 2017 | | [address] | [address] | | | | | [address] | [address] | | | | | [place] | [place] [address] | | | | | [address] | [phone] | | | | | [phone] | | | +--------+ + + + [...]
--- OUTSIDE RECORDS SUMMARY | ~2019-02-17 | XMS | Encounter Summary ---
Demographics + + + | Address | [address] [facility] | | | [place] [address] | + + + | Home Phone | | + + + | Preferred Language | Unknown | + + + | Marital Status | | + + + | Anglican Affiliation | 1013 | + + + | Race | Unknown | + + + | Ethnic Group | Unknown | + + + Author + + + | Author | [facility] | | | and Jalilana | + + + | Organization | [facility] | | | and Jalilana [...] Team Providers + +------+ + | Care Aviation Manager Name | Role | Phone | [...] | | | | [place] | [phone] | | | | | [address] | | | | | | [phone] | | | +--------+ + + + [...]
--- OUTSIDE RECORDS SUMMARY | ~2019-02-17 | XMS | Clinical Summary ---
Demographics + + + | Address | [address] [facility] [facility] | | | [place] [address] | + + + | Home Phone | | + + + | Preferred Language | Unknown | + + + | Marital Status | | + + + | Anabaptism Affiliation | Unknown | + + + | Race | Unknown | + + + | Ethnic Group | Unknown | + + + Author + + + | Author | [facility] (Historical as of | | | 09-28-18) | + + + | Organization | [facility] (Historical as of | | | 09-28-18) | + + + | Address | Unknown | + + + | Phone | Unavailable | + + + Support + + +---------+ + | Name | Relationship | Address | Phone | + + +---------+ + | Keith Machuca | SETH | Unknown | | + + +---------+ + Care Team Providers + +------+ + | Care Director Television News Name | Role | Phone | + +------+ + | Roselyn Cotter | PP | Unavailable | + +------+ + Allergies No Known Allergies Current Medications + + +--------+---------+------+------+-------+ | Prescription | Sig. | Disp. | Refills | Star | End | Statu | | | | | | t | Date | s | | | | | | Date | | | + + +--------+---------+------+------+-------+ | traMADol (ULTRAM) | Take 50 mg by mouth | | | | | Activ | | 50 MG tablet | every 6 (six) hours | | | | | e | | | as needed for Pain. | | | | | | + + +--------+---------+------+------+-------+ | aspirin 325 MG | Take 650 mg by mouth | | | | | Activ | | tablet | as needed for Pain. | | | | | e | + + +--------+---------+------+------+-------+ | folic acid | Take 1 tablet by | 90 | 2 | 12/3 | | Activ | | (FOLVITE) 1 MG | mouth daily. | tablet | | 0/20 | | e | | tablet | | | | 16 | | | + + +--------+---------+------+------+-------+ | hydrocortisone | Take 5 mg by mouth 2 | | | | | Activ | | (CORTEF) 5 MG tablet | (two) times daily. | | | | | e | + + +--------+---------+------+------+-------+ | naltrexone | Take 50 mg by mouth | | | | | Activ | | (DEPADE) 50 MG | daily. | | | | | e | | tablet | | | | | | | + + +--------+---------+------+------+-------+ | meloxicam (MOBIC) | Take 1 tablet by | 30 | 0 | / | 08/13 | Activ | | 15 MG tablet | mouth daily. | tablet | | / | 05/01 | e | | | | | | 19 | 20 | | + + +--------+---------+------+------+-------+ | | Place onto the | | | | | Activ | | [id number]-[id number]-[id number] | skin. | | | | | e | | ogesterone | | | | | | | | (BIEST/PROGESTERONE | | | | | | | | TD) | | | | | | | + + +--------+---------+------+------+-------+ | thyroid (ARMOUR) | Take 120 mg by mouth | | | | | Activ | | 120 MG tablet | every morning | | | | | e | | | before breakfast. | | | | | | + + +--------+---------+------+------+-------+ | Thyroid 48.75 MG | Take by mouth. | | | | | Activ | | TABS | | | | | | e | + + +--------+---------+------+------+-------+ | estriol-estradiol | Apply topically | | | | | Activ | | in hormone cream | daily. Apply every | | | | | e | | base | other day | | | | | | + + +--------+---------+------+------+-------+ + + +-------+ +------+------+-------+ | Hospital, Clinic, or | Ordered | Route | Frequency | Star | End | Statu | | Other Facility | Dose | | | t | Date | s | | Administered | | | | Date | | | | Medication | | | | | | | + + +-------+ +------+------+-------+ | bupivacaine (PF) | 0.5 mL | IX | Once | 01/0 | | Activ | | (MARCAINE) 0.25 % | | | | 7/20 | | e | | injection 0.5 | | | | 18 | | | | mLIndications: | | | | | | | | Arthritis of | | | | | | | | carpometacarpal | | | | | | | | (CMC) joint of right | | | | | | | | thumb | | | | | | | + + +-------+ +------+------+-------+ | Triamcinolone | .5 mL | IJ | Once | 01/0 | | Activ | | Diacetate SUSP 0.5 | | | | 7/20 | | e | | mLIndications: | | | | 18 | | | | Arthritis of | | | | | | | | carpometacarpal | | | | | | | | (CMC) joint of right | | | | | | | | thumb | | | | | | | + + +-------+ +------+------+-------+ | bupivacaine (PF) | 0.5 mL | IX | Once | 01/0 | | Activ | | (MARCAINE) 0.25 % | | | | 7/20 | | e | | injection 0.5 | | | | 18 | | | | mLIndications: | | | | | | | | Arthritis of | | | | | | | | carpometacarpal | | | | | | | | (CMC) joint of left | | | | | | | | thumb | | | | | | | + + +-------+ +------+------+-------+ | Triamcinolone | .5 mL | IJ | Once | 01/0 | | Activ | | Diacetate SUSP 0.5 | | | | 7/20 | | e | | mLIndications: | | | | 18 | | | | Arthritis of | | | | | | | | carpometacarpal | | | | | | | | (CMC) joint of left | | | | | | | | thumb | | | | | | | + + +-------+ +------+------+-------+ | bupivacaine (PF) | 0.5 mL | IX | Once | 12/13 | | Activ | | (MARCAINE) 0.25 % | | | | /20 | | e | | injection 0.5 | | | | 18 | | | | mLIndications: | | | | | | | | Arthritis of | | | | | | | | carpometacarpal | | | | | | | | (CMC) joint of right | | | | | | | | thumb | | | | | | | + + +-------+ +------+------+-------+ | Triamcinolone | .5 mL | IJ | Once | 12/13 | | Activ | | Diacetate SUSP 0.5 | | | | 4/20 | | e | | mLIndications: | | | | 18 | | | | Arthritis of | | | | | | | | carpometacarpal | | | | | | | | (CMC) joint of right | | | | | | | | thumb | | | | | | | + + +-------+ +------+------+-------+ | bupivacaine (PF) | 0.5 mL | IX | Once | 11/1 | | Activ | | (MARCAINE) 0.25 % | | | | 4/20 | | e | | injection 0.5 | | | | 18 | | | | mLIndications: | | | | | | | | Arthritis of | | | | | | | | carpometacarpal | | | | | | | | (CMC) joint of left | | | | | | | | thumb | | | | | | | + + +-------+ +------+------+-------+ | Triamcinolone | .5 mL | IJ | Once | 11/1 | | Activ | | Diacetate SUSP 0.5 | | | | 4/20 | | e | | mLIndications: | | | | 18 | | | | Arthritis of | | | | | | | | carpometacarpal | | | | | | | | (CMC) joint of left | | | | | | | | thumb | | | | | | | + + +-------+ +------+------+-------+ Active Problems + + + | Problem | Noted Date | + + + | Sacroiliitis (HCC) | 09/04/2018 | + + + | [...] Overview: Added automatically from request for surgery [id number] | + + + + + | Arthritis of carpometacarpal (CMC) joint of right thumb | 12/26/2017 | + + + | Subluxation of carpometacarpal joint of left thumb | 02/18/2017 | + + + | Arthritis of carpometacarpal (CMC) joint of left thumb | 02/18/2017 | + + + | Right hand pain | 02/18/2017 | + + + | Spondyloarthropathy (HCC) | 11/03/2016 | + + + | High risk medication use | 11/03/2016 | + + + | Thrombocytopenia (HCC) | 11/03/2016 | + + + | Spondylosis without myelopathy or radiculopathy, lumbosacral | 12/21/2015 | | region | | + + + + + | Last Assessment & Plan: See discussion under sacroiliac joint | | pain. | + + + + + | Inflammatory polyarthropathy or polyarthritis | 12/21/2015 | + + + | Chronic right-sided low back pain without sciatica | 12/21/2015 | + + + | Slow transit constipation | 10/28/2015 | + + + + + | Last Assessment & Plan: Her next complaint is chronic | | constipation. She has tried senna leaves. She has not seen a | | provider for this issue. She has not seen a GI provider either. | | I encouraged her to follow-up with her PCP. The interim I | | encouraged her to try [id number]-[id number] laxitives. | + + + + + | Sacro-iliac pain | 01/19/2015 | + + + + + | Last Assessment & Plan: She was diagnosed with psoriatic | | arthritis and ankylosing spondylitis this past year. She reports | | no weakness, numbness nor bowel/bladder dysfunction. She did try | | physical therapy 2 years ago in [facility] [place] for a total of 6 | | visits. She reported some help with physical therapy. She also | | tried massage and heat. She will take tramadol and NSAIDs as | | needed. She denies any bowel/bladder dysfunction. She had a | | pelvis MRI that showed normal appearance of SI joints, right | | lateral listhesis of L4 on L5. Bilateral hip joint effusion. | | She was referred to Dr. Ferguson for consideration of | | interventional pain management. She underwent a right sacroiliac | | joint steroid injection on 02/08/2015 and again on May 12, | | 2015.. She reported that this procedure provided significant | | relief for 6-8 weeks at 100 percent. Her pain then gradually | | returned. She underwent a repeat right sacroiliac joint injection | | on 2015. She reported 1 week of relief and her pain | | quickly returned. With this short relief, we went forward with | | diagnostic median branch blocks of right dorsal ramus L4, L5 and | | lateral branches of S1, S2, and S3 on 12-21-15 with the anesthetic | | agent bupivacaine. She received 80% improvement for 6 hours | | with a gradual return of her symptoms. This is appropriate and | | she is a candidate for radiofrequency neurotomies.Will proceed | | with radiofrequency neurotomies under fluoroscopic guidance. She | | receives her pain medication thru her PCP. Will notify their | | office that after the procedure she may have increase pain for | | 2-8 weeks. With this she may need adjustments of her | | medication.Will also give her a bowel prep to take the night | | before.Plan, alternatives, risks, and potential benefits of the | | procedure were discussed with the patient great detail. They | | understand there is no guarantee they will get pain relief with | | this procedure. They also understand that if they do get pain | | relief with the procedure it is not likely to be permanent. It | | is likely to last approximately 6 to 12 months. They also | | understand that there are risks of the procedure itself which | | include but are not limited to infection, abscess, hematoma, | | nerve damage, increased pain, permanent dysfunction to their | | limbs, stroke, and side effects from medications. They wished to | | proceed. | + + + + + | Spondylolisthesis of lumbar region | 01/19/2015 | + + + + + | Last Assessment & Plan: See discussion under sacroiliac joint | | pain | + + Family History + +------+ + [...] + +------+ + + Social History + + + +--------+------+ | Tobacco Use | Types | Packs/Day | Years | Date | | | | | Used | | + + + +--------+------+ | Former Smoker | Cigarettes | | | | + + + +--------+------+ + +---+---+---+ | Smokeless Tobacco: | | | | | Never Used | | | | + +---+---+---+ + + +---------+ + | Alcohol Use | Drinks/We | oz/Week | Comments | | | ek | | | + + +---------+ + | Yes | | | occasional | + + +---------+ + + + + | Sex Assigned at | Date Recorded | | | | + + + | Not on file | | + + + Last Filed Vital Signs + + + + | Vital Sign | Reading | Time Taken | + + + + | Blood Pressure | 98/62 | 09/04/2018 9:39 AM PDT | + + + + | Pulse | 72 | 09/04/2018 9:39 AM PDT | + + + + | Temperature | 36.7 C (98 F) | 09/04/2018 9:39 AM PDT | + + + + | Respiratory Rate | 16 | 01/11/2016 5:29 PM PST | + + + + | Oxygen Saturation | 98% | 09/04/2018 9:39 AM PDT | + + + + | Inhaled Oxygen | - | - | | Concentration | | | + + + + | Weight | 84.1 kg (185 lb 6.4 | 09/04/2018 9:39 AM PDT | | | oz) | | + + + + | Height | 182.9 cm (6') | 06/19/2018 2:31 PM PDT | + + + + | Body Mass Index | 25.14 | 09/04/2018 9:39 AM PDT | + + + + Plan of Treatment + + + + + | Health Maintenance | Due Date | Last Done | Comments | + + + + + | Vaccine: | | | | | Dtap/Tdap/Td (1 - | 3 | | | | Tdap) | | | | + + + + + | Cervical Cancer | | | | | Screening (Pap) | 4 | | | + + + + + | Breast Cancer | | | | | Screening | 4 | | | | (Mammogram) | | | | + + + + + | Colon Cancer | | | | | Screening [...] Not on filefrom Last 3 Months Insurance + +--------+ +------+-------+---------+ | Payer | Benefi | Subscriber | Type | Phone | Address | | | t Plan | ID | | | | | | / | | | | | | | Group | | | | | + +--------+ +------+-------+---------+ | [employer] | UNITED | [id number] | | | | | | | | | | | | | HEALTH | | | | | | | CARE - | | | | | | | SLC | | | | | + +--------+ +------+-------+---------+ + +--------+ +--------+ + + | Guarantor Name | Accoun | Relation to | Date | Phone | Billing Address | | | t Type | Patient | of | | | | | | | | | | + +--------+ +--------+ + + | TRISTA MACHUCA | Person | Self [birth year] | Home: | [address] | | | al/Fam | | 1966 | [phone] | [place] | | | miles | | | [phone] | [phone] | + +--------+ +--------+ + +"
--- OUTSIDE RECORDS SUMMARY | ~2019-02-17 | XMS | Encounter Summary ---
Demographics + + + | Address | [address] [facility] [address] | | | [place] [address] | + + + | Home Phone | | + + + | Preferred Language | Unknown | + + + | Marital Status | | + + + | Faith Affiliation | 1013 | + + + | Race | Unknown | + + + | Ethnic Group | Unknown | + + + Author + + + | Author | [facility] | | | and Jal[place] | + + + | Organization | [facility] | | | and Jalilana [...] Team Providers + +------+ + | Care Chemical Worker Name | Role | Phone | + +------+ + | Roselyn Cotter | PCP | | | PA | | | + +------+ + Encounter Details +--------+ + + + + | Date | Type | Department | Care Team | Description | +--------+ + + + + | 10/03/ | Orders Only | [facility] | Nito Bhatt ARNP | | | 2016 | | [address] XRAY [address] | [address] | | | | | [address] | [place] | | | | | [place] | [address] | | | | | [address] | | | | | | [phone] | | | +--------+ + + + [...] + +--------+ + + + | XR HAND RIGHT 1 VW | Routin | 10/03/2016 | | Results for this | | LIMITED | e | 12:14 PM | | procedure are in the | | | | PDT | | results section. | + +--------+ + + + documented in this encounter Results XR Hand Right 1 Vw Limited (10/03/2016 12:14 PM PDT) + + | Specimen | + + | | + + + + + | Narrative | Performed At | + + + | History: This is a 51 y.o. year old female. Diagnosis for Order | | | ICD-10-CM 1. Right hand pain M79.641 X-ray hand limited right 2 | | | views Indications: Base of right thumb pain first x-rays | | | Technique: 2 view x-ray of the right thumb. Comparison Exam: none | | | Findings/Impression: 1. Right thumb carpometacarpal joint | | | arthritis 2. Right thumb partial subluxation and the | | | carpometacarpal joint 3. No acute fracture. GOPAL WEBB, | | | DO 10/04/2016 | | + + + + + | Procedure Note | + + | Gurvinder Chan Conversion - 10/03/2018 7:20 PM PDT History: This is a 51 y.o. year old | | female. Diagnosis for Order ICD-10-CM1. Right hand pain M79.641 X-ray hand limited | | right 2 views Indications: Base of right thumb pain first x-rays Technique: 2 view x-ray | | of the right thumb. Comparison Exam: none Findings/Impression: 1. Right thumb | | carpometacarpal joint arthritis 2. Right thumb partial subluxation and the | | carpometacarpal joint 3. No acute fracture. GOPAL WEBB, DO10/04/2016 | |Technique: 2 view x-ray of the right thumb. | | | |Comparison Exam: none | | | |Findings/Impression: | | | |1. Right thumb carpometacarpal joint arthritis | | | |2. Right thumb partial subluxation and the carpometacarpal joint | | | |3. No acute fracture. | | | | | |GOPAL WEBB DO | |10/04/2016 | | | + + documented in this encounter Visit Diagnoses Not on filedocumented in this encounter"
--- OUTSIDE RECORDS SUMMARY | ~2019-02-17 | XMS | Clinical Summary ---
Demographics + + + | Address | [address] [facility] | | | [place] [address] | + + + | Home Phone | | + + + | Preferred Language | Unknown | + + + | Marital Status | | + + + | Mormon Affiliation | Unknown | + + + | Race | Unknown | + + + | Ethnic Group | Unknown | + + + Author + + + | Author | [facility] (Historical as of | | | 09-28-18) | + + + | Organization | [facility] (Historical as of | | | 09-28-18) [...] Team Providers + +------+ + | Care Autocad Operator Name | Role | Phone | [...] | | | | Activ | | Gseevriow-Mkxjkzu-Tu | skin. | | | | | [...] Overview: Added automatically from request for surgery [id number] | + + + + + | [...] I | | encouraged her to try wkqk-vzg-mokiruj laxitives. | + + + + + | Sacro-iliac pain | 01/19/2015 | + + + + + | Last Assessment & Plan: She was diagnosed with psoriatic | | arthritis and ankylosing spondylitis this past year. She reports | | no weakness, numbness nor bowel/bladder dysfunction. She did try | | physical therapy 2 years ago in [facility] [place] for a total of 6 [...] +------+-------+---------+ | [employer] | UNITED | [id number] | | | | | | | [...] | Self | [birth year] | Home: | [address] | | | al/Fam | | 1966 | [phone] | [place] | | | miles | | | [phone] | [phone] | + +--------+ +--------+ + +"
--- OUTSIDE RECORDS SUMMARY | ~2019-02-17 | XMS | Encounter Summary ---
Demographics + + + | Address | [address] [facility] | | | [place] [address] | + + + | Home Phone | | + + + | Preferred Language | Unknown | + + + | Marital Status | | + + + | Hindu Affiliation | 1013 | + + + | Race | Unknown | + + + | Ethnic Group | Unknown | + + + Author + + + | Author | [facility] | | | and Jal[place]ana | + + + | Organization | [facility] | | | and Jal[place]ana | [...] Team Providers + +------+ + | Care Senior Quality Control Inspector Name | Role | Phone | + [...] Description | +--------+--------+ + + + | 10/03/ | Refill | [facility] | Neema Queen | Medication Refill | | 2018 | | RHEUMATOLOGY [address] | [address] | | | | [address] | [address] | | | | | [place] | [place] [address] | | | | | [address] | [phone] | | | | | [phone] | | | +--------+--------+ + + + [...] filedocumented as of this encounter Visit Diagnoses + + | Diagnosis | + + | Osteoarthritis, unspecified osteoarthritis type, unspecified site - Primary | + + documented in this encounter"
--- OUTSIDE RECORDS SUMMARY | ~2019-02-17 | XMS | Encounter Summary ---
Demographics + + + | Address | [address] [facility] | | | [place] [address] | + + + | Home Phone | | + + + | Preferred Language | Unknown | + + + | Marital Status | | + + + | Mormonism Affiliation | 1013 | + + + | Race | Unknown | + + + | Ethnic Group | Unknown | + + + Author + + + | Author | [facility] | | | and Jalilana | + + + | Organization | [facility] | | | and [...] Team Providers + +------+ + | Care Stitch Marker Name | Role | Phone | + +------+ + | Roselyn Cotter | PCP | | | PA | | | + +------+ + Encounter Details +--------+ + + + + | Date | Type | Department | Care Team | Description | +--------+ + + + + | 02/08/ | Orders Only | [facility] | Conversion | | | 2014 | | CONVERSION DEP [address] | Transaction, | | | | | [address] | Provider Unknown | | | | | [place] | [phone] | | | | | [address] | | | | | | [phone] | | | +--------+ + + + [...]
--- OUTSIDE RECORDS SUMMARY | ~2019-02-17 | XMS | Encounter Summary ---
Demographics + + + | Address | [address] [facility] | | | [place] [address] | + + + | Home Phone | | + + + | Preferred Language | Unknown | + + + | Marital Status | | + + + | Sikhism Affiliation | 1013 | + + + | Race | Unknown | + + + | Ethnic Group | Unknown | + + + Author + + + | Author | [facility] | | | and Jalilana | + + + | Organization | [facility] | | [...] Team Providers + +------+ + | Care Engineering Faculty Member Name | Role | Phone | + +------+ + PCP | Unavailable | + +------+ + Encounter Details +--------+ + + + + | Date | Type | Department | Care Team | Description | +--------+ + + + + | 08/24/ | Hospital | [facility] | Eugenio Rowe, | | | 2000 | Encounter | MED CTR GENERIC OP | MD [address] | | | | | CONV DEPT [address] | [place] | | | | | [place], | [address] | | | | | [place] [address] | | | | | | [phone] | | | +--------+ + + + [...]
--- OUTSIDE RECORDS SUMMARY | ~2019-02-17 | XMS | Encounter Summary ---
Demographics + + + | Address | [address] [facility] | | | [place] [address] | + + + | Home Phone | | + + + | Preferred Language | Unknown | + + + | Marital Status | | + + + | Methodist Affiliation | 1013 | + + + | Race | Unknown | + + + | Ethnic Group | Unknown | + + + Author + + + | Author | [facility] | | | and Jalilana | + + + | Organization | [facility] | | | and [...] Team Providers + +------+ + | Care Demolition Expert Name | Role | Phone | + +------+ + | Roselyn Cotter | PCP | | | PA | | | + +------+ + Encounter Details +--------+ + + + + | Date | Type | Department | Care Team | Description | +--------+ + + + + | 12/21/ | Orders Only | [facility] | Conversion | | | 2018 | | CONVERSION DEP [address] | Transaction, | | | | | [address] | Provider Unknown | | | | | [place] | [phone] | | | | | [address] | | | | | | [phone] | | | +--------+ + + + [...]
--- OUTSIDE RECORDS SUMMARY | ~2019-02-17 | XMS | Encounter Summary ---
Demographics + + + | Address | [address] | | | [place] [address] | + + + | Home Phone [...] | Author | [facility] | | | and Jal[place]ana | + + + | Organization | [facility] | | | and Jal[place]ana | [...] Team Providers + +------+ + | Care Graduate Internship Name | Role | Phone | + [...] | | | | [place] | [phone] | | | | | [address] | | | | | | [phone] | | | +--------+ + + + [...]
--- OUTSIDE RECORDS SUMMARY | ~2019-02-17 | XMS | Encounter Summary ---
Demographics + + + | Address | [address] | | | [place] [address] | + + + | Home Phone | | + + + | Preferred Language | Unknown | + + + | Marital Status | | + + + | Baptist Affiliation | 1013 | + + + | Race | Unknown | + + + | Ethnic Group | Unknown | + + + Author + + + | Author | [facility] | | | and Jal[place]ana | + + + | Organization | [facility] | | | and [...] Team Providers + +------+ + | Care Trade Promotion Analyst Name | Role | Phone | [...] | | | | [place] | [phone] | | | | | [address] | | | | | | [phone] | | | +--------+ + + + [...]
--- OUTSIDE RECORDS SUMMARY | ~2019-02-17 | XMS | Encounter Summary ---
Demographics + + + | Address | [address] [facility] | | | [place] [address] | + + + | Home Phone [...] Author | [facility] | | | and Jal[place]ana | + + + | Organization | [facility] | | | and [place]al[place] | [...] Team Providers + +------+ + | Care Design Center Consultant Name | Role | Phone | + +------+ + | Roselyn Cotter | PCP | | | PA | | | + +------+ + Encounter Details +--------+ + + + + | Date | Type | Department | Care Team | Description | +--------+ + + + + | 09/13/ | Orders Only | [facility] | Iker Rowe | | | 2017 | | [address] XRAY [address] | [address] | | | | | [address] | [address] | | | | | [place] | [place] [address] | | | | | [address] | [phone] | | | | | [phone] | | | +--------+ + + + [...]
--- OUTSIDE RECORDS SUMMARY | ~2019-02-17 | XMS | Encounter Summary ---
Demographics + + + | Address | [address] | | | [place] [address] | + + + | Home Phone | | + + + | Preferred Language | Unknown | + + + | Marital Status | | + + + | Jewish Affiliation | 1013 | + + + | Race | Unknown | + + + | Ethnic Group | Unknown | + + + Author + + + | Author | [facility] | | | and Jalilana | + + + | Organization | [facility] | | | and [...] Team Providers + +------+ + | Care Magisterial District Judge Name | Role | Phone | + [...] | | | | [place] | [address] | | | | | [address] | | | | | | [phone] | | | +--------+ + + + [...]
--- OUTSIDE RECORDS SUMMARY | ~2019-02-17 | XMS | Encounter Summary ---
Demographics + + + | Address | [address] [facility] | | | [place] [address] | + + + | Home Phone | | + + + | Preferred Language | Unknown | + + + | Marital Status | | + + + | Zoroastrianism Affiliation | 1013 | + + + | Race | Unknown | + + + | Ethnic Group | Unknown | + + + Author + + + | Author | [facility] | | | and Jalilana | + + + | Organization | [facility] | | | and Jalilana [...] Team Providers + +------+ + | Care Powdered Metal Supervisor Name | Role | Phone | [...] + + | 10/03/ | Refill | [facility] | Neema Queen | Medication Refill | | 2018 | | [address]HEUM[address]OLOGY [address] | [place] [address] | | | | | [address] | [address] | | | | | [place] | [place] [address] | | | | | [address] | [phone] | | | | | [phone] | | | +--------+--------+ + + + [...]
--- OUTSIDE RECORDS SUMMARY | ~2019-02-17 | XMS | Encounter Summary ---
Demographics + + + | Address | [address] [facility] | | | [place] [address] | + + + | Home Phone | | + + + | Preferred Language | Unknown | + + + | Marital Status | | + + + | Anglican Affiliation | 1013 | + + + | Race | Unknown | + + + | Ethnic Group | Unknown | + + + Author + + + | Author | [facility] | | | and Jalilana | + + + | Organization | [facility] | | | and Jalilana [...] Team Providers + +------+ + | Care Athletic Events Scorer Name | Role | Phone | + [...] | [address] | [address] Vargas [address] | | | | | [place] | [facility] | | | | | [address] | [place] [address] | | | | | [phone] | [phone] | | | | | | | [...]
--- OUTSIDE RECORDS SUMMARY | ~2019-02-17 | XMS | Encounter Summary ---
Demographics + + + | Address | [address] [facility] | | | [place] [address] | + + + | Home Phone | | + + + | Preferred Language | Unknown | + + + | Marital Status | | + + + | Gnosticist Affiliation | 1013 | + + + | Race | Unknown | + + + | Ethnic Group | Unknown | + + + Author + + + | Author | [facility] | | | and Jalilana | + + + | Organization | [facility] [...] Team Providers + +------+ + | Care Student Financial Aid Manager Name | Role | Phone | + +------+ + PCP | Unavailable | + +------+ + Encounter Details +--------+ + + + + | Date | Type | Department | Care Team | Description | +--------+ + + + + | 10/05/ | Hospital | [facility] | Alhaji Nuno | | | 2012 | Encounter | MED CTR EMERGENCY | MD Torsten [address] | | | | | [place] [address] | [place]isha [facility] | | | | | [place] | [place] [address] | | | | | [address] | [phone] | | | | | [phone] | | | +--------+ + + + [...] Performed At | + + + | [facility] | [place] | | Department [address] [facility] [place] [address] | [facility] | | [ rep [address]] [ rep [facility] | | st zip] Signed | - IMAGING | | | | | Patient Name: TRISTA MENDOZA | | | Physician: EFRAIN : 1965 Age: 47 Sex: F Unit | | | #: [id number] Exam Date: 10/05/12 Location: | | | ER Report #: [id number] Page: | | | %(RAD)RES..mtdd.print.filter("pg") of %(RAD) | | | RES..mtdd.print.filter("tpg") | | | | | | Accession Number: [id number] | | | PORTABLE CHEST CLINICAL HISTORY: [...] Transcribed Date/Time: 10/05/2012 | | | 11:41 [employer] Salesperson: <<Signature | | | on File>> | | | | | | Angel Chambers MD10/06/12 0954 <Electronically signed by | | | Angel Chambers MD> Angel Chambers MD 10/05/12 | | | 1128 [employer] Salesperson: Raysa Wneihbdrttdgg19/24/13 1141 | | | Alhaji Nuno MD | | + + + + + + + + | Performing | Address | City/State/Zipcode | Phone Number | | Organization | | | | + + + + + | [facility] | [address] | [place] | [phone] | | [facility] | | [address] | | | - IMAGING | | [...] [address] | [place] | [phone] | | [facility] | | [address] | | | - LABORATORY | | | | + + + + + | [facility] | [address] | [place] | | | [facility] | | [address] | | | - LABORATORY | | [...] + | [facility] | [address] | [place], [place] | [phone] | | [facility] | | [address] | | | - LABORATORY | | | | + + + + + | [facility] | [address] | [place], [place] | | | [facility] | | [address] | | | - LABORATORY | | [...] + | [facility] | [address] | [place], [place] | [phone] | | [facility] | | [address] | | | - LABORATORY | | | | + + + + + | [facility] | [address] | [place] | | | [facility] | | [address] | | | - LABORATORY | | [...] The | | | | | | [employer] | | | | | [...] + + | Performing | Address | City/State/[facility] | Phone Number | | Organization | | | | + + + + + | [facility] | [address] | [place] | [phone] | | [facility] | | [address] | | | - LABORATORY | | | | + + + + + | [facility] | [address] | [place] | | | [facility] | | [address] | | | - LABORATORY | | | | + + + + + documented in this encounter Visit Diagnoses Not on filedocumented in this encounter
--- OUTSIDE RECORDS SUMMARY | ~2019-02-17 | XMS | Encounter Summary ---
Demographics + + + | Address | [address] [facility] | | | [place] [address] | + + + | Home Phone | | + + + | Preferred Language | Unknown | + + + | Marital Status | | + + + | Mu-Ism Affiliation | 1013 | + + + | Race | Unknown | + + + | Ethnic Group | Unknown | + + + Author + + + | Author | [facility] | | | and Jalilana | + + + | Organization | [facility] | [...] Team Providers + +------+ + | Care City Planning Engineer Name | Role | Phone | + +------+ + | Roselyn Cotter | PCP | | | [place] | | | + +------+ + Encounter Details +--------+ + + + + | Date | Type | Department | Care Team | Description | +--------+ + + + + | 11/22/ | Orders Only | [facility] | Adriano Chavez, | | | 2015 | | RHEUMATOLOGY [address] | [address] | | | | | [address] [place] | [address] [place] | | | | | [place] | [address] | | | | | [address] | | | | | | [phone] | | | +--------+ + + + [...]
--- OUTSIDE RECORDS SUMMARY | ~2019-02-17 | XMS | Encounter Summary ---
Demographics + + + | Address | [address] [facility] | | | [place] [address] | + + + | Home Phone | | + + + | Preferred Language | Unknown | + + + | Marital Status | | + + + | Yazidism Affiliation | 1013 | + + + | Race | Unknown | + + + | Ethnic Group | Unknown | + + + Author + + + | Author | [facility] | | | and Jalilana | + + + | Organization | [facility] | | | and Jalilana [...] Team Providers + +------+ + | Care Occupational Medicine Specialist Name | Role | Phone | + [...] + + | 10/15/ | Refill | [facility] | Neema Queen | Medication Refill | | 2018 | | R[address]UMATOLOGY [address] | [address] Vargas [address] | | | | | [address] | [address] | | | | | [place] | [place] [address] | | | | | [address] | [phone] | | | | | [phone] | | | +--------+--------+ + + + [...]
--- OUTSIDE RECORDS SUMMARY | ~2019-02-17 | XMS | Clinical Summary ---
Demographics + + + | Address | [address] [facility] | | | [place] [address] | + + + | Home Phone | | + + + | Preferred Language | Unknown | + + + | Marital Status | | + + + | Hoahaoism Affiliation | 1013 | + + + | Race | Unknown | + + + | Ethnic Group | Unknown | + + + Author + + + | Author | [facility] | | | and Jalilana | + + + | Organization | [facility] | [...] Team Providers + +------+ + | Care Chassis Inspector Name | Role | Phone | [...] Overview: Added automatically from request for surgery [id number] | + + + + + | [...] +-------+--------+ +--------+-------+---------+------+ | BCBS | BCBS | [id number] | | | | PPO | | [...] Person | Self | [birth year] | [address] | | | al/Fam | | 1966 | [phone] | [address] [place] | | | miles | | | 2 (Home) | [address] | | | | | | [phone] | | | | | | | 0 (Work) | | + +--------+ +--------+ + + Advance Directives + + + + + | Type | Date Recorded | Patient | Explanation | | | | Manager Compensation | | + + + + + | Power of | | | | | 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
--- OUTSIDE RECORDS SUMMARY | ~2019-02-17 | XMS | Encounter Summary ---
Demographics + + + | Address | [address] [facility] | | | [place] [address] | + + + | Home Phone | | + + + | Preferred Language | Unknown | + + + | Marital Status | | + + + | Hindu Affiliation | 1013 | + + + | Race | Unknown | + + + | Ethnic Group | Unknown | + + + Author + + + | Author | [facility] | | | and Jalilana | + + + | Organization | [facility] | | | and Jalilana [...] Team Providers + +------+ + | Care Electric Range Servicer Name | Role | Phone | + [...] | | | | [place] | [phone] | | | | | [address] | | | | | | [phone] | | | +--------+ + + + [...]
--- OUTSIDE RECORDS SUMMARY | ~2019-02-17 | XMS | Encounter Summary ---
Demographics + + + | Address | [address] [facility] | | | [place] [address] | + + + | Home Phone | | + + + | Preferred Language | Unknown | + + + | Marital Status | | + + + | Uatsdin Affiliation | 1013 | + + + | Race | Unknown | + + + | Ethnic Group | Unknown | + + + Author + + + | Author | [facility] | | | and Jalilana | + + + | Organization | [facility] | [...] Team Providers + +------+ + | Care Ballistic Technician Name | Role | Phone | + +------+ + | Roselyn Cotter | PCP | | | [place] | | | + +------+ + Encounter Details +--------+ + + + + | Date | Type | Department | Care Team | Description | +--------+ + + + + | 09/13/ | Orders Only | [facility] | Iker Rowe | | | 2017 | | AND ANKLE XRAY [address] | [address] | | | | | [address] [place] [address] | [address] [place] [address] | | | | | [place] | [place] [address] | | | | | [address] | [phone] | | | | | [phone] | | | +--------+ + + + [...]
--- OUTSIDE RECORDS SUMMARY | ~2019-02-17 | XMS | Encounter Summary ---
Demographics + + + | Address | [address] [facility] | | | [place] [address] | + + + | Home Phone | | + + + | Preferred Language | Unknown | + + + | Marital Status | | + + + | Congregational Affiliation | 1013 | + + + | Race | Unknown | + + + | Ethnic Group | Unknown | + + + Author + + + | Author | [facility] | | | and Jalilana | + + + | Organization | [facility] | | | and Jalilana [...] Team Providers + +------+ + | Care Field Marketing Lead Name | Role | Phone | + [...] | | | | [place] | [phone] | | | | | [address] | | | | | | [phone] | | | +--------+ + + + [...]
--- OUTSIDE RECORDS SUMMARY | ~2019-02-17 | XMS | Encounter Summary ---
Demographics + + + | Address | [address] [facility] | | | [place] [address] | + + + | Home Phone | | + + + | Preferred Language | Unknown | + + + | Marital Status | | + + + | Episcopalian Affiliation | 1013 | + + + | Race | Unknown | + + + | Ethnic Group | Unknown | + + + Author + + + | Author | [facility] | | | and Jalilana | + + + | Organization | [facility] | | | and Jalilana [...] Team Providers + +------+ + | Care Undercar Specialist Name | Role | Phone | + +------+ + | Roselyn Cotter | PCP | | | PA | | | + +------+ + Encounter Details +--------+ + + + + | Date | Type | Department | Care Team | Description | +--------+ + + + + | 11/22/ | Orders Only | [facility] | Adriano Chavez, | | | 2015 | | RHEUMATOLOGY [address] | [address] | | | | | [address] [place] | [address] [place] | | | | | [place] | [address] | | | | | [address] | | | | | | [phone] | | | +--------+ + + + [...]
--- OUTSIDE RECORDS SUMMARY | ~2019-02-17 | XMS | Encounter Summary ---
Demographics + + + | Address | [address] [facility] | | | [place] [address] | + + + | Home Phone | | + + + | Preferred Language | Unknown | + + + | Marital Status | | + + + | Yazidi Affiliation | 1013 | + + + | Race | Unknown | + + + | Ethnic Group | Unknown | + + + Author + + + | Author | [facility] | | | and Jalilana | + + + | Organization | [facility] | | | and Jal[place]ana | [...] Team Providers + +------+ + | Care Res Counselor Name | Role | Phone | + +------+ + | Roselyn Cotter | PCP | | | [place] | | | + +------+ + Encounter Details +--------+ + + + + | Date | Type | Department | Care Team | Description | +--------+ + + + + | 04/12/ | Orders Only | [facility] | Conversion | | | 2016 | | RHEUMATOLOGY [address] | Transaction, | | | | | [address] | Provider Unknown | | | | | [place] | [phone] | | | | | [address] | | | | | | [phone] | | | +--------+ + + + [...]
[~2019-02-17 10:43] MED LIST changes: +ACETAMINOPHEN-1 EACH PO; +ASPIRIN EC325 MG PO; +CELECOXIB200 MG PO; +GABAPENTIN600 MG PO; +HYDROCORTISONE5 MG PO; +LIOTHYRONINE SO5 MCG PO; +MAGNESIUM CITR125 MG PO; +MELOXICAM15 MG PO; +NEURONTIN100 MG PO; +NP THYROID 120120 MG PO; +OXYCODONE HCL5 MG PO; +POLYETHYLENE GL17 GM PO; +SELENIUM200 MC2 PO; +VITAMIN D325 MC2 PO
--- OUTSIDE RECORDS SUMMARY | 2019-02-17 10:46 | XMS ---
PreManage Notification: CARLY MACHUCA [employer] Advisor Events No recent Security Events currently on file [facility] There are no care providers on record at this time. Vinicio has no Care Guidelines for this patient. [facility] VISIT COUNT (12 MO.) 1 WILL [place] TOTAL 1 NOTE: Visits indicate total known visits. ED/UCC VISIT TRACKING (12 MO.) 02/17/2019 10:44 [facility] TYPE: Emergency COMPLAINT: - SOB, WEAKNESS INPATIENT VISIT TRACKING (12 MO.) 02/10/2019 13:[address] [facility] OR TYPE: Medical Surgical COMPLAINT: - RIGHT TOTAL HIP REPLACEMENT DIAGNOSES: - Unilateral primary osteoarthritis, right hip [email or web address]
--- NOTE | 2019-02-17 21:14 | EKG ---
[facility] [address] [place], [place] [address] Signed Normal sinus rhythm Normal ECG No previous ECGs available Confirmed by GIANA WATT MD ([id number]) on 02/17/2019 9:14:39 PM Electronically Signed By: GIANA WATT MD 02/17/19 2114 PATIENT NAME: CARLY MACHUCA Electrocardiogram DATE OF : 61 PHYSICIAN: GIANA WATT MD REPORT #: [id number] REPORT IS CONFIDENTIAL AND NOT TO BE RELEASED WITHOUT AUTHORIZATION
== END 2019-02-17 15:04 | disposition home or self-care (01) ==
LOC: ED 10:43
DX: R06.02 Shortness of breath (principal); E03.9 Hypothyroidism, unspecified; F41.9 Anxiety disorder, unspecified; Z87.891 Personal history of nicotine dependence; Z88.8 Allergy status to other drugs, medicaments and biological substances; Z79.82 Long term (current) use of aspirin; Z79.899 Other long term (current) drug therapy
CPT/HCPCS: 71260; 80053; 83880; 84484; 85025; 93005; 93010; 99285-25; Q9967

== ENCOUNTER 2021-08-18 07:37 | Emergency (ER) | payer OTHER ==
[~2021-08-18] VITALS: Ht 182.9 cm; Wt 79.4 kg
--- OUTSIDE RECORDS SUMMARY | 2021-08-18 07:40 | XMS ---
PreManage Notification: CARLY MACHUCA Security It Applications Analyst Events No recent Security Events currently on file CRITERIA MET - PDMP CARE PROVIDERS CONY SANTOYO Physician Human Capital Consultant 02/18/2019-Current PHONE: Unknown Vinicio has no Care Guidelines for this patient. [employer] VISIT COUNT (12 MO.) 1 WILL [place] TOTAL 1 NOTE: Visits indicate total known visits. ED/UCC VISIT TRACKING (12 MO.) 08/18/2021 07:38 WILL Nielsen [place] TYPE: Emergency COMPLAINT: - FLU SYMPTOMS INPATIENT VISIT TRACKING (12 MO.) No inpatient visits to display in this time frame [email or web address]
[2021-08-18] MEDS ORDERED: DICLOFENAC SODI75 MG PO (07:55)
[2021-08-18] MEDS ORDERED: ESZOPICLONE3 MG PO (07:56)
== END 2021-08-18 10:19 | disposition home or self-care (01) ==
LOC: ED 07:37
DX: U07.1 COVID-19 (principal); E03.9 Hypothyroidism, unspecified; Z87.891 Personal history of nicotine dependence; Z88.8 Allergy status to other drugs, medicaments and biological substances; Z79.82 Long term (current) use of aspirin; Z79.899 Other long term (current) drug therapy
CPT/HCPCS: 87502; 99283; C9803; U0003